=== PATIENT | male | born 1995 | race Two or more races ===

== ENCOUNTER 2017-02-21 20:48 | Emergency (ER) | payer OTHER, MEDICAID ==
[2017-02-21 20:57] VITALS: PULSE 70; RESP 14; TEMP 98.4
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
[2017-02-21 23:02] VITALS: BP 125/67; O2SAT 98
== END 2017-02-21 23:00 | disposition home or self-care (01) ==
DX: S00.83XA Contusion of other part of head, initial encounter (principal); Z87.891 Personal history of nicotine dependence; Y04.8XXA Assault by other bodily force, initial encounter

== ENCOUNTER 2017-05-29 13:38 | Emergency (ER) | payer MEDICAID, OTHER ==
[2017-05-29 14:01] VITALS: BP 127/69; PULSE 71; RESP 18; TEMP 98.1; O2SAT 95
== END 2017-05-29 14:32 | disposition left against medical advice (07) ==
DX: Z53.21 Procedure and treatment not carried out due to patient leaving prior to being seen by health care provider (principal)

== ENCOUNTER 2017-05-29 15:35 | Emergency (ER) | payer MEDICAID ==
[2017-05-29 15:47] VITALS: BP 123/66; PULSE 80; RESP 17; TEMP 98.2; O2SAT 97
== END 2017-05-29 18:19 | disposition left against medical advice (07) ==
DX: Z53.21 Procedure and treatment not carried out due to patient leaving prior to being seen by health care provider (principal)

== ENCOUNTER 2017-05-30 16:04 | Emergency (ER) | payer MEDICAID | END 2017-05-30 16:49 | disposition left against medical advice (07) | DX: Z53.21 Procedure and treatment not carried out due to patient leaving prior to being seen by health care provider (principal) ==

== ENCOUNTER 2017-06-09 17:08 | Emergency (ER) | payer MEDICAID ==
[2017-06-09 17:19] VITALS: BP 140/61
--- NOTE | 2017-06-09 17:57 | EDPHY ---
ED Progress Note Narrative: As I walked into the room to evaluate the patient, the patient walked out of the room with his dog stating "I'm gonna leave". I did not examine the patient. I did not interview the patient.
== END 2017-06-09 18:17 | disposition left against medical advice (07) ==
LOC: EEVIPCON 17:08
DX: Z53.21 Procedure and treatment not carried out due to patient leaving prior to being seen by health care provider (principal)

== ENCOUNTER 2017-08-15 12:20 | Emergency (ER) | payer MEDICAID ==
[2017-08-15 13:08] LABS: PLATELET COUNT 289 10^3/uL (150-400)
--- NOTE | 2017-08-15 13:26 | EDPHY ---
General - History Smoking Status: Former smoker Time Seen by Provider: 08/15/17 13:01 Narrative: CHIEF COMPLAINT: M1 hold HISTORY OF PRESENT ILLNESS: Patient presents by [facility]'s Office on an M1 hold. He denies any complaints of any kind. He says that he was at pre-trial supervision for court date tomorrow when he was placed on an M1 hold. He denies any complaints of suicidal ideation or homicidal ideation. He says that he is concerned that he is not going to make his court date tomorrow, which he has because he did not make a previous court day. He has no chest pain or shortness of breath. No other complaints of any kind. The M1 has been documented that he was exhibiting flight of ideas, tangential behavior, poor decision making and grave disability. Patient denies these complaints. PSYCHIATRIC DIAGNOSES: Denies any formal diagnoses PRIOR PSYCHIATRIC EVALUATIONS: Denies inpatient evaluations M1/DETAINER: [place] [employer] just prior to arrival REVIEW OF SYSTEMS: Ten systems reviewed and are negative unless otherwise noted in the HPI EXAMINATION General Appearance: Alert, no distress Well-developed well-nourished. Head: normocephalic, atraumatic Eyes: Pupils equal and round, no conjunctival pallor or injection ENT, Mouth: Mucous membranes moist Neck: Normal inspection, supple, non-tender Respiratory: Lungs are clear to auscultation. No wheezing rhonchi or crackles Cardiovascular: Regular rate and rhythm. No murmur Neurological: GCS 15. A&O, nonfocal, normal gait Skin: Warm and dry, no rash. No petechiae or purpura. No lacerations Extremities: Nontender, no pedal edema Psychiatric: Extremely flat affect. Denies suicidal ideation. Denies homicidal ideation. Controlled thought. DIFFERENTIAL DIAGNOSES: Including but not limited to schizoaffective, schizophrenia, bipolar, grave disability, MDM: 1:10 p.m. M1 hold due to reported tangential thought, erratic behavior. The patient denies suicidal ideation. He has thus far cooperative. 1:55 p.m. Patient is cleared at this time for evaluation 2:30 p.m. Patient is [facility] by [facility]. 4:00 p.m. Patient has been evaluated I do not have any updated information at this time. 4:36 p.m. Patient has been evaluated, and they recommend placement for possible acute psychosis, first episode. The patient has reportedly had adverse reaction to new such as this in the past, thus I will order Zyprexa. At this point he is cooperative and placement will be found. 5:00 p.m. At this time Dr. Luis will assume care the patient. Please see her note for final disposition. SUPERVISION: Patient was independently examined, but I discussed the case with my primary supervising physician Dr. Luis. (Louisa Bellay) 2300: Patient here on M1 hold. Signed over to Dr. Reyes, Katie eval ( Alton Aly) 1:35 a.m.- Patient has been stable. He has been accepted for further care at [facility] by Dr. Alvarado. I have completed the EMTALA form. (Essence Reyes) Discussion: 9pm: signed over to Dr. Aly at shift change. Dispo pending. (Jenise Luis ) - Objective Vital Signs: Initial Vital Signs Temperature (C) 36.9 C 08/15/17 12:20 Heart Rate 78 08/15/17 12:20 Respiratory Rate 18 08/15/17 12:20 Blood Pressure 123/73 H 08/15/17 12:20 O2 Sat (%) 97 08/15/17 12:20 O2 Delivery Mode Room Air Allergies/Adverse Reactions: No Known Allergies Allergy (Verified 06/09/17 17:14) Home Medications: Medication Instructions Recorded NK [No Known Home Meds] 02/21/17 Laboratory Results: Laboratory Results 08/15/17 13:00 08/15/17 13:00 08/15/17 13:25 Urine Opiates Screen NEGATIVE (NEGATIVE) Urine Barbiturates NEGATIVE (NEGATIVE) Ur Phencyclidine Scrn NEGATIVE (NEGATIVE) Ur Amphetamine Screen NEGATIVE (NEGATIVE) U Benzodiazepines Scrn NEGATIVE (NEGATIVE) Urine Cocaine Screen NEGATIVE (NEGATIVE) U Marijuana (THC) Screen NEGATIVE (NEGATIVE) Medications Given: Discontinued Medications Olanzapine (Zyprexa Zydis) 10 mg PO EDNOW ONE Stop: 08/15/17 16:39 Last Admin: 08/15/17 17:09 Dose: Not Given Olanzapine (Olanzapine) 10 mg PO ONCE ONE Stop: 08/15/17 18:24 Last Admin: 08/15/17 18:33 Dose: Not Given Departure - Departure Disposition: Other Psych, Not [place] Clinical Impression: Acute psychosis Condition: Good Referrals: NONE *PRIMARY CARE P,. [Primary Care Provider] - As per Instructions
[2017-08-15] MEDS ORDERED: OLANZapine DISINTEGR 10 MG TAB PO ONE (16:38)
[2017-08-15] MEDS ORDERED: OLANZapine 5 MG TAB PO ONE (18:23)
[2017-08-16 01:35] VITALS: BP 121/59
== END 2017-08-16 02:16 ==
DX: F23 Brief psychotic disorder (principal); Z87.891 Personal history of nicotine dependence
CPT/HCPCS: 80305; G0480

== ENCOUNTER 2017-08-22 23:19 | Emergency (ER) | payer MEDICAID ==
[2017-08-22 23:32] VITALS: BP 125/82
--- NOTE | 2017-08-22 23:34 | CPEKG ---
Heart Rate: 89 RR Interval: 674 P-R Interval: 172 QRSD Interval: 90 QT Interval: 348 QTC Interval: 424 P [place]: 41 QRS [place]: 61 T Wave [place]: 25 EKG Severity - BORDERLINE ECG - EKG Impression: SINUS RHYTHM EKG Impression: INFERIOR Q WAVES, PROBABLY NORMAL VARIATION Electronically Signed By: Yahir Prince 24-Aug-2017 08:47:52
--- NOTE | 2017-08-23 00:37 | EDPHY ---
H & P Stated Complaint: chest pain Time Seen by Provider: 08/22/17 23:26 HPI/ROS: Chief Complaint: Chest pain HPI: 22-year-old male's presenting of substernal chest pain, left-sided facial numbness, right arm tingling. Patient states this started earlier today. Patient was recently admitted to the inpatient psychiatric unit at [facility] was discharged this afternoon. He actually states he has been having chest discomfort intermediately for the last week. He does not smoke. Does not have any risk factors for coronary artery disease. Patient is very poor historian very vague, only complaining of some mild discomfort. No family history of coronary disease. ROS: 10 point Review of Systems is negative except as noted in the HPI. PMH: Denies Social History: Denies smoking, denies alcohol, denies other drug use Family History: No family history of coronary artery disease or sudden cardiac Physical Exam: Gen: Awake, Alert, No Distress HEENT: Nose: no rhinorrhea Eyes: PERRLA, EOMI Mouth: Moist mucosa Neck: Supple, no JVD Chest: nontender, lungs clear to auscultation Heart: S1, S2 normal, no murmur Abd: Soft, non-tender, no guarding Back: no CVA tenderness, no midline tenderness Ext: no edema, non-tender Skin: no rash Neuro: CN II-XII intact, Sensation grossly intact, Strength 5/5 in bilateral upper and lower extremities - Personal History Current Tetanus Diphtheria and Acellular Pertussis (TDAP): Yes - Medical/Surgical History Hx Asthma: No Hx Chronic Respiratory Disease: No Hx Diabetes: No Hx Cardiac Disease: No Hx Renal Disease: No Hx Cirrhosis: No Hx Alcoholism: No Hx HIV/AIDS: No Hx Splenectomy or Spleen Trauma: No Other PMH: tonsilectomy as child. Pt states no other history. - Social History Smoking Status: Former smoker Constitutional: Initial Vital Signs Heart Rate 94 08/22/17 23:28 Respiratory Rate 20 08/22/17 23:28 Blood Pressure 125/82 H 08/22/17 23:28 O2 Sat (%) 97 08/22/17 23:28 O2 Delivery Mode Nasal Cannula O2 (L/minute) 1 Allergies/Adverse Reactions: No Known Allergies Allergy (Verified 08/22/17 23:27) Home Medications: Medication Instructions Recorded NK [No Known Home Meds] 02/21/17 Medical Decision Making - Diagnostics EKG Interpretation: ECG time 11:25 p.m., sinus rhythm with a rate of 89, normal axis, normal intervals, no acute ST or T-wave changes. Impression: Normal ECG. Imaging Results: Chest x-ray is negative per my interpretation. Imaging: I viewed and interpreted images myself ED Course/Re-evaluation: 22-year-old male with no risk factors for coronary disease presenting with chest pain. Concerned he is having a heart attack. He was released from a mental health inpatient admission chest earlier today. ECG is normal. Chest is negative. Entered the patient's room to given the results of his testing thus far and he has left against medical advice. Departure - Departure Disposition: Home, Routine, Self-Care Clinical Impression: Chest pain Condition: Good Instructions: Chest Pain (ED) Additional Instructions: Follow up with [facility] in 2-3 days for further evaluation. Follow up at [facility] tomorrow for further care. Make sure you get your prescriptions filled and resume your medications later today. Return to the emergency department for worsening chest pain, shortness of breath , fevers, chills, nausea, vomiting, or any other concerns. Referrals: [facility],. [Clinic] - As per Instructions
== END 2017-08-23 00:56 | disposition home or self-care (01) ==
LOC: EDUNIT#
DX: R07.9 Chest pain, unspecified (principal); Z87.891 Personal history of nicotine dependence

== ENCOUNTER 2017-08-23 11:20 | Emergency (ER) | payer MEDICAID ==
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
[2017-08-23] MEDS ORDERED: LORazepam 2 MG/ML INJ IVP ONE (11:28)
[2017-08-23 11:52] LABS: PLATELET COUNT 337 10^3/uL (150-400)
[2017-08-23] MEDS ORDERED: OLANZapine DISINTEGR 10 MG TAB PO ONE (11:55)
[2017-08-23] MEDS ORDERED: OLANZapine DISINTEGR 10 MG TAB ONE (12:17)
[2017-08-23 20:44] VITALS: BP 121/93
== END 2017-08-23 20:43 | disposition home or self-care (01) ==
LOC: EDUNIT#
DX: R45.1 Restlessness and agitation (principal); F19.10 Other psychoactive substance abuse, uncomplicated
CPT/HCPCS: 80305; 96374; G0480; J2060

== ENCOUNTER 2017-08-24 19:46 | Emergency (ER) | payer MEDICAID ==
--- NOTE | 2017-08-24 19:49 | EDPHY ---
H & P - Medical/Surgical History Hx Asthma: No Hx Chronic Respiratory Disease: No Hx Diabetes: No Hx Cardiac Disease: No Hx Renal Disease: No Hx Cirrhosis: No Hx Alcoholism: No Hx HIV/AIDS: No Hx Splenectomy or Spleen Trauma: No Other PMH: tonsilectomy as child. Pt states no other history. - Social History Smoking Status: Former smoker Time Seen by Provider: 08/24/17 19:49 HPI/ROS: CHIEF COMPLAINT: "The voices tell me I have chest pain" HISTORY OF PRESENT ILLNESS: 22-year-old male arrives via ambulance on an M1 hold for psychosis, audio hallucinations telling him he has chest pain. He denies complaints of chest pain but tells me that the voices tell him he has chest pain. Denies dyspnea. Denies abdominal pain. Denies fever chills. Denies cocaine or drug use He denies suicidal or homicidal ideation. REVIEW OF SYSTEMS: A ten point review of systems was performed and is negative with the exception of the items mentioned in the HPI PAST MEDICAL & SURGICAL HISTORY: Prior history of hospitalization for psychiatric issues. SOCIAL HISTORY: Positive for marijuana use PHYSICAL EXAM (Prior to examination, patient consented to physical exam, hands were washed and my usual and customary physical exam procedures followed) 1) GENERAL: Well-developed, well-nourished, alert and oriented. Calm and cooperative. 2) HEAD: Normocephalic, atraumatic 3) HEENT: Pupils equal, round, reactive to light bilaterally. Sclera anicteric. 4) NECK: Full range of motion, no meningeal signs. 5) LUNGS: Clear auscultation bilaterally, no wheezes, no rhonchi, no retractions. 6) HEART: Regular rate and rhythm, no murmur, no heave, no gallop. 7) ABDOMEN: No guarding, no rebound, no focal tenderness, 8) MUSCULOSKELETAL: Moving all extremities, no focal areas of tenderness, no obvious trauma. No peripheral edema or discoloration. 9) BACK: No obvious trauma, no visual or palpable abnormality. 10) SKIN: No rash, no petechiae. 11) Psychiatric: Patient is oriented X 3, there is no agitation. He is watching TV. DIFFERENTIAL DIAGNOSIS: In no particular order including but not limited to psychosis, patria, suicidal ideation, homicidal ideation (Jos eJuan Hu) Constitutional: Initial Vital Signs Temperature (C) 37 C 08/24/17 19:59 Heart Rate 92 08/24/17 19:59 Respiratory Rate 20 08/24/17 19:59 Blood Pressure 120/87 H 08/24/17 19:59 O2 Sat (%) 95 08/24/17 19:59 O2 Delivery Mode Room Air Allergies/Adverse Reactions: No Known Allergies Allergy (Verified 08/24/17 19:59) Home Medications: Medication Instructions Recorded NK [No Known Home Meds] 02/21/17 Medical Decision Making - Diagnostics Imaging Results: Images reviewed myself (Jose Juan Hu) ED Course/Re-evaluation: 7:50 p.m.: Old medical records reviewed. Patient was in the emergency department yesterday evaluated by mental health mail teller and discharged. Today he is on an M1 hold for complaints of psychosis, audio hallucination. Denies suicidal or homicidal ideation. Interviewing his old medical records he has prior complaints of chest pain from the emergency department. At this time although he is, cooperative he is quite insistent that we need to do a " complete cardiac evaluation". He denies family history of premature coronary artery disease, denies history of cocaine use, denies family history of coagulopathic disorder. Informed him that I would obtain laboratory studies in the emergency department 9:50 p.m.: Re-evaluation he is calm and cooperative. I discussed with him his normal troponin, normal D-dimer which I think adequately excludes pulmonary embolus in this patient whom I have a moderate pretest suspicion for pulmonary embolus. In addition he has a negative chest x-ray. Informed him that I think that PR, PE, less than likely this patient at this time. Expressed understanding of this. 10:25 p.m.: Patient has been overall calm and cooperative up until this time. At this time however his behavior is escalating, he is threatening to "have my medical license revoked", patient is yelling that I am providing "substandard cardiac care". 130 am: Mental health mail teller has evaluated the patient , recommended inpatient , will start looking for placement. 2 am: Care turned over to Dr. Essence Reyes. Mental health evaluating pending (Jose Juan Hu) 6:00 a.m.- The patient has been stable throughout my shift. At 6:45 a.m., the patient was accepted to [facility] by Dr. Mackenzie. I have completed the EMTALA form. At 7:00 a.m., I anticipate the case will be signed out to the oncoming provider Dr. Flores. [facility] - Data Points Laboratory Results: Laboratory Results 08/24/17 19:50 08/24/17 19:50 Medications Given: Discontinued Medications Lorazepam (Ativan) 1 mg PO EDNOW ONE Stop: 08/24/17 22:15 Last Admin: 08/24/17 22:32 Dose: 1 mg Olanzapine (Zyprexa Zydis) 5 mg PO EDNOW ONE Stop: 08/24/17 22:15 Last Admin: 08/24/17 22:39 Dose: Not Given Olanzapine (Zyprexa Zydis) 10 mg PO EDNOW ONE Stop: 08/24/17 22:31 Last Admin: 08/24/17 22:32 Dose: 10 mg Departure - Departure Disposition: Other Psych, Not [place] Clinical Impression: Acute psychosis Condition: Fair Referrals: Patient,NotPresent [Unknown] - As per Instructions
[2017-08-24 20:05] LABS: PLATELET COUNT 312 10^3/uL (150-400)
--- NOTE | 2017-08-24 21:01 | CPEKG ---
Heart Rate: 61 RR Interval: 984 P-R Interval: 172 QRSD Interval: 98 QT Interval: 400 QTC Interval: 403 P [place]: 13 QRS [place]: 61 T Wave [place]: 35 EKG Severity - BORDERLINE ECG - EKG Impression: SINUS RHYTHM EKG Impression: BORDERLINE Q WAVES IN INFERIOR LEADS EKG Impression: INFERIOR Q WAVES, PROBABLY NORMAL VARIATION Electronically Signed By: Josue Parnell 24-Aug-2017 23:19:31
[2017-08-24] MEDS ORDERED: OLANZapine DISINTEGR 5 MG TAB PO ONE (22:14)
[2017-08-24] MEDS ORDERED: LORazepam 1 MG TAB PO ONE (22:14)
[2017-08-24] MEDS ORDERED: OLANZapine DISINTEGR 10 MG TAB PO ONE (22:30)
[2017-08-25 07:45] VITALS: BP 105/65
== END 2017-08-25 10:17 ==
LOC: EDUNIT#
DX: F23 Brief psychotic disorder (principal); Z87.891 Personal history of nicotine dependence
CPT/HCPCS: 80305; G0480

== ENCOUNTER 2017-08-28 22:20 | Emergency (ER) | payer MEDICAID ==
[2017-08-28] MEDS ORDERED: NS 1,000 ML IV ONE (22:29)
--- NOTE | 2017-08-28 22:31 | EDPHY ---
H & P Source: Patient, RN/MD, EMS, Old records Exam Limitations: Clinical condition - Medical/Surgical History Hx Asthma: No Hx Chronic Respiratory Disease: No Hx Diabetes: No Hx Cardiac Disease: No Hx Renal Disease: No Hx Cirrhosis: No Hx Alcoholism: No Hx HIV/AIDS: No Hx Splenectomy or Spleen Trauma: No Other PMH: tonsilectomy as child. Pt states no other history. - Social History Smoking Status: Former smoker Time Seen by Provider: 08/28/17 22:30 HPI/ROS: HPI: This is a 22-year-old male who presents with Chief Complaint: Marijuana intoxication, chest pain Location: Chest Quality: Pain Duration: Days Signs and Symptoms: no shortness of breath at rest, no shortness of breath on exertion, no cough, + chest pain, no palpitations, no lower extremity edema, no wheezing, no orthopnea, no paroxysmal nocturnal dyspnea, no fever, no injury/ trauma, no hemoptysis, no carpal pedal spasms Timing: Acute on chronic Severity: Moderate Context: Patient presents via EMS as a bystander saw him next the curb shaking and yelling out that he was having chest pain. Patient admits to smoking marijuana throughout the day today. He reports that he feels extremely anxious , feels like has difficulty getting his thoughts together. He denies any hallucinations, paranoia, shortness of breath, abdominal pain, fever, chills. He denies any alcohol or drug use. He reports that he has no cardiac family history. Denies history of cocaine use. Denies suicidal or homicidal ideation. Patient has been seen in this emergency room 4 times over the last week for the same complaint. He has had 2-chest x-rays on 08/22 and 08/24. He has had multiple EKGs that show no acute ischemic changes/arrhythmias. He had a negative D-dimer on 08/24/2017. EMS reports that for lead shows no acute ischemic changes but it is sinus tachycardia at 122 beats per minute and respiratory rate at 32. Reports that he follows with [facility] and is supposed to take a medication regular but he is unsure of the name. He does report that he has been noncompliant with his medication for"sometime."On 2017 patient was recommended for inpatient therapy and is accepted by [facility] by Dr. Mackenzie. Patient insists that his blood pressure cuff has to remain on the left arm as it is closest to the heart and only way to determine if he is having heart attack. He tells me that his family will not answer his phone calls. He also reports that he is being evicted from his home as he does not have a job. Modifying Factors: None Comment: ROS: see HPI Constitutional: No fever, no chills, no weight loss Eyes: No blurred vision Respiratory: No shortness of breath, no cough Cardiovascular: + chest pain, no palpitations, no lower extremity edema Gastrointestinal: No nausea, no vomiting, no diarrhea Genitourinary: No dysuria Extremities: No myalgias Neurologic: No weakness, no numbness Skin: No rashes Hematologic: No bruising, no bleeding MEDICAL/SURGICAL/SOCIAL HISTORY: Medical history: Generally healthy. Does not take any regular medications. Surgical history: Tonsillectomy Social history: Unemployed. Former smoker. CONSTITUTIONAL: Extremely anxious young adult male, awake and alert, no obvious distress HEENT: Atraumatic and normocephalic, PERRL, EOMI. Nares patent; no rhinorrhea; no nasal mucosal edema. Tympanic membranes clear. Oropharynx clear, no exudate and moist pink mucosa. Airway patent. No lymphadenopathy. No meningismus. Cardiovascular: Normal S1/S2, tachycardia, regular rhythm, without murmur rub or gallop. PULMONARY/CHEST: Symmetrical and nontender. Clear to auscultation bilaterally. Good air movement. No accessory muscle usage. ABDOMEN: Soft, nondistended, nontender, no rebound, no guarding, no peritoneal signs, no masses or organomegaly. No CVAT. EXTREMITIES: 2/2 pulses, strength 5/5, no deformities, no clubbing, no cyanosis or edema. NEUROLOGICAL: no focal neuro deficits. GCS 15. SKIN: Warm and dry, no erythema. no rash. Good capillary refill. PSYCH: Poor eye contact, no flight of ideas, fairly organized thought process, poor insight and judgment, no auditory hallucinations, no visual hallucinations , no suicidal ideation with a plan, no homicidal ideation, no paranoia (Elizabeth,Terra) Constitutional: Initial Vital Signs Temperature (C) 37.1 C 08/28/17 22:27 Heart Rate 123 H 08/28/17 22:27 Respiratory Rate 18 08/28/17 22:27 Blood Pressure 162/65 H 08/28/17 22:27 O2 Sat (%) 100 08/28/17 22:27 O2 Delivery Mode Room Air Allergies/Adverse Reactions: No Known Allergies Allergy (Verified 08/28/17 22:31) Home Medications: Medication Instructions Recorded NK [No Known Home Meds] 02/21/17 Medical Decision Making - Diagnostics EKG Interpretation: 12 lead EKG: Indication: Chest pain Rhythm: Sinus tachycardia, rate 122 beats per minute [place]: Normal Intervals: Normal QRS: Normal ST segments: Normal INTERPRETATION: Normal EKG The 12 lead EKG was interpreted by myself and with attending. (Susan Johnson) ED Course/Re-evaluation: Vital signs reviewed upon arrival and show hyperventilation syndrome. Patient is clearly anxious and under the influence of marijuana. Initial EKG shows sinus tachycardia with a rate of 122 beats minute but no signs of acute ischemia/arrhythmias. Labs and UDS ordered. Patient given 1 L normal saline and 2 mg IV Ativan upon arrival. Do not feel the benefit of adding a D-dimer as it was negative several days ago and no benefit to repeat chest x-ray due to 2-x-rays in the last few days. 2245: Patient refusing IV Ativan at this time. 2305: Labs reviewed. No signs of anemia/platelet dysfunction/MOISES/electrolyte imbalance/ACS. Mild leukocytosis of 12 K noted. 2325: Reassessed patient who is tearful and talking about his mother dying from a heart attack and benzodiazepines. He reports that he lives at several different addresses and has disorganized thought process he truly believes that he has a cardiac condition he is going to . He is extremely paranoid and is having psychosis. Patient at this time is gravely disabled and placed on M1 hold. IV Ativan 2 mg given. 0005: End of Shift. Signed over to Dr. Reyes pending urine sample, medical clearance and final disposition. Patient would benefit from medication stabilization and inpatient psychiatric hospitalization. This patient was seen under the supervision of my secondary supervising physician. I evaluated care for this patient independently. Discussed this patient with Dr. Reyes. (Susan Johnson) PHYSICIAN DOCUMENTATION: The patient was evaluated and managed by the Physician Job Printer Apprentice. My co- signature indicates that I have reviewed this chart and I agree with the findings and plan of care as documented. I am the secondary supervising physician. I assumed care of this patient at 1:00 a.m.. He was stable and sleeping for most of his time on my shift. At 7:00 a.m., the case was turned over to the oncoming provider Dr. Truong. Patient is currently undergoing his mental health evaluation with EPS. (Essence Reyes) 3:35 p.m. patient was accepted at [address] [place] [address] Casey. I have completed transfer paperwork. (Carlos Flores) Differential Diagnosis: Chest pain including but not limited to myocardial ischemia, pulmonary embolus, chest wall pain, pleural inflammation and pulmonary infectious causes. (Susan Johnson) Other Provider: Care assumed at 7:00 a.m. Plan for psychiatric evaluation for acute psychosis. Recent ED visit within the last week with hospitalization at [facility] for acute psychosis. Afebrile on arrival, lab workup negative except for benzodiazepine positive on tox screen. Chest pain, likely not acute emergent medical condition. On a mental health hold. Per mental health insurance verification clerk plan is to admit to [address] [place] [address], followed by attempt to get him a more prolonged hospitalization at [facility]. Signed out to Sandra at 1500 with psychiatric placement pending. (Clovis Truong) - Data Points Laboratory Results: Laboratory Results 08/28/17 22:30 08/28/17 22:30 08/29/17 05:05 Urine Opiates Screen NEGATIVE (NEGATIVE) Urine Barbiturates NEGATIVE (NEGATIVE) Ur Phencyclidine Scrn NEGATIVE (NEGATIVE) Ur Amphetamine Screen NEGATIVE (NEGATIVE) U Benzodiazepines Scrn NON-NEGATIVE H (NEGATIVE) Urine Cocaine Screen NEGATIVE (NEGATIVE) U Marijuana (THC) Screen NEGATIVE (NEGATIVE) Medications Given: Discontinued Medications Sodium Chloride (Ns) 1,000 mls @ 0 mls/hr IV EDNOW ONE; Wide Open PRN Reason: Protocol Stop: 08/28/17 22:30 Last Admin: 08/28/17 22:37 Dose: 1,000 mls Lorazepam (Ativan Injection) 2 mg IVP EDNOW ONE Stop: 08/28/17 22:29 Last Admin: 08/28/17 22:47 Dose: Not Given Lorazepam (Ativan Injection) 2 mg IVP EDNOW ONE Stop: 08/28/17 23:53 Last Admin: 08/28/17 23:54 Dose: 2 mg Olanzapine (Zyprexa Zydis) 5 mg PO EDNOW ONE Stop: 08/29/17 00:05 Last Admin: 08/29/17 04:53 Dose: Not Given Point of Care Test Results: Chemistry 08/28/17 22:39 POC Troponin I 0.00 ng/mL ng/mL (0.00-0.08) Departure - Departure Disposition: [facility] IP Clinical Impression: Non-cardiac chest pain, Marijuana use, continuous, Schizophrenia Psychosis Qualifiers: Psychosis type: delusional disorder Qualified Code(s): F22 - Delusional disorders Condition: Fair Instructions: Chest Pain (ED) Referrals: [facility],. [Clinic] - As per Instructions [facility],. [Clinic] - As per Instructions
--- NOTE | 2017-08-28 22:33 | CPEKG ---
Heart Rate: 122 RR Interval: 492 P-R Interval: 145 QRSD Interval: 104 QT Interval: 282 QTC Interval: 402 P [place]: 75 QRS [place]: 72 T Wave [place]: -16 EKG Severity - ABNORMAL ECG - EKG Impression: SINUS TACHYCARDIA EKG Impression: BORDERLINE Q WAVE IN ANTEROLATERAL LEADS EKG Impression: INFERIOR Q WAVES, PROBABLY NORMAL VARIATION EKG Impression: BORDERLINE T WAVE ABNORMALITIES Electronically Signed By: Clovis Truong 29-Aug-2017 07:40:00
[2017-08-28] MEDS: LORazepam 2 MG/ML INJ IVP ONE ×2 (22:37→22:47)
[2017-08-28 22:47] LABS: PLATELET COUNT 367 10^3/uL (150-400)
[2017-08-28] MEDS ORDERED: LORazepam 2 MG/ML INJ IVP ONE (23:52)
[2017-08-29] MEDS ORDERED: OLANZapine DISINTEGR 5 MG TAB PO ONE (00:04)
--- NOTE | 2017-08-29 14:42 | ASMTTLCEVL ---
TLC Evaluation - Basic Information Evaluation Start Date and 08/29/2017 01:07 AM Time Hospital Status Answers: M1 Hold 72-hr M1 Hold Start Date 08/29/2017 11:25 PM and Time Patient statement Notes: Pt self presented last night with complaints of chest pain, a heart attack and with fears that he was dying. Pt. had told ED staff he had been smoking a small amount of THC yesterday and thinks he is dying. Pt. had reported his chest pain started before smoking marijuana yesterday. Pt. had told [facility] worker that he has multiple puncture wounds in his forehead and on his legs. Pt. showed the [facility] worker but the skin appeared to be intact with no injury. Pt. had also told [facility] worker he has sensors implanted in his head and his forehead Pt. was placed on a M1 hold by [facility] due to his bizarre complaints and inappropriate thought process. All medical tests for cardiac problems were negative. Pt. had stated he was given a Rx for Zyprexa but he has not taken any meds since leaving the hospital on Sunday, 08/27 since he does not feel he needs any psychiatric medications. Narrative Notes: Pt. is a 22 year old, single, male who was brought to the [facility] ED by EMS after a bystander saw him next to a curb shaking and yelling out that he wa having chest pain. Pt. had admitted to smoking marijuana throughout the day today. He reports that he feels extremely anxious, feels like he has difficulty getting his thoughts together. Pt. had denied any hallucinations, paranoia, shortness of breath, abdominal pain, fever or chills. Pt. denied to the [facility] any alcohol or drug use. Pt. also had denied any HI or SI. Pt. has been seen in the [facility] ED 4 times in the last week for the same complaints. He had 2 chest x-rays on 08/22 and on 08/24. He had multiple EKG's that showed no acute ischemic changes/arhythmias. Per [facility] report pt. has been in the [facility] ED with the same presentation several times on 08/23, 08/24 and 08/16 with similar complaints of racing heart and thinking he was having a heart attack. Pt. had denied any prior or any current mental health issues or treatment even denying any inpt. admissions. During [facility] evaluation pt. had reported having his real estate attorney on the pone to record the assessment. Pt. was noted to be perseverating on medical problems. It was noted pt. was discharged from [facility] unit on 08/27/17. Per MH assessment on 08/15/17 at the [facility] Debora Thomas, reporting it was believed pt is having his first psychotic break. Pt. has no known hx of prior MH treatment including no prior hospitalizations or arrests since April of 2017. Pt. has reported to have gone through 14 thousand dollars since April of 2017 likely due to his psychiatric state. Per M1 hold pt is disorganized with flat affect and confused without ability to provide an accurate time line or identify information. Diagnosis History Notes: Pt. has no known history of legal or mental health intervention until April of 2017. Pt. is not a reliable historian and was unable to provide a time line of past MH intervention or treatment. Prior suicide attempts Notes: There is no prior hx of past suicide attempts known. Pt. is not a reliable historian. Prior hospitalizations Notes: Per [facility] gps navigation installer pt was hospitalized at [facility] form 08/15-08/22 and at [facility] form 08/25-08/27. Treatment Responses Notes: Pt. apparently did not f/u with any treatment recommendations including no f/u with medications. History of violence Notes: Pt. has no known history of violence towards others or being a victim of violence. Medications (name, dosage, route, freq uency) Notes: When pt. was discharged from [facility] on 08/27 it was reported he was given a Rx of Zyprexa. Pt. had told [facility] worker he does not feel a need for taking any medications for mental health problems. Pt. had told [facility] gps navigation installer part of the reason he is against taking medications is he believes his mother's heart attack was due to her taking prescribed medications Allergies/Reaction Notes: No report allergies. Sleep Notes: Pt. reports his sleeping is good and concentration is OK. Appetite Notes: Pt. was unable to reliably report on appetite. Medical/Surgical history Notes: No known medical problems. Pt. has made numerous visits to the ED with beliefs he was having a heart attack. Substance use history (frequency, intensity, his tory, duration) Notes: Unable to assess pt's substance abuse hx. Pt. is not a reliable informant. There appears to be strong suspicion pt. has some hx of substance use. Pt. did admit when presenting to the ED he has a hx of marijuana use. Family composition Notes: Pt. had reported his mother in 2009 and he raised himself from that point on. It was reported that his father is also Pt. had one known brother who he apparently has not communicated with since the mother's in 2009. Need for family Answers: No participation in patient's care Family psychiatric/substance abuse history Notes: Pt. had denied any family hx of mental health issues including no reported hx of substance abuse problems, SI or suicide attempts. Per prior reports it was noted pt's mother became addicted to narcotics after she had a car accident. Pt's mother apparently when pt. was a freshman in high school of a drug overdose. Developmental history Notes: Pt's mother when he was a freshman in high school. Pt. was unable to reliably report on developmental hx. Abuse concerns Answers: None Marital status/children Notes: Pt. reports to be single, never with no children. Living situation Notes: Pt. reported he may loose his housing since he has no money to pay his rent. Sexual history/orientation Notes: Pt. identifies as a heterosexual. Peer support/family strengths Notes: Pt. does not appear to have any family support and any peer support is unknown. Education level/history Notes: Pt claims he graduated from high school and completed college except for the last semester towards a BA in Finance. Work history Notes: Pt. is currently unemployed. He was unable to report a reliable history of work history. Notes: Pt. has no known hx. Legal Notes: Pt. has a hx of legal problems/arrests for trespassing and indecent exposure. Pt. is not currently on probation. He does however have a court date pending in August for failure to appear in court for prior arrests. Per evaluation on 08/15/17 in April pt was arrested at the [facility] after presenting documentation with false identify demanding a license. [facility] staff reported pt since he was not making sense and was charged with obstruction, trespassing and resisting arrest that ultimately resulted in pt. being tased and his service dog being confiscated. Pt was unable to explain what was going on or shy he had a service dog. In May [facility] gps navigation installer reported pt. was arrested at a yoga studio after masturbating in public per yoga studio staff and was making nonsensical statements and appeared to be confused Pt. had been charged with the yoga incident for indecent exposure. Per [facility] report pt. has spent Restorationism/Spiritual Notes: Pt. did not report any pentecostal or spiritual beliefs that would impact his treatment. Leisure Notes: Pt. was unable to reliably report on leisure interests. Collateral Notes: Collateral inform. was obtained from [facility] report and previous MH evaluation he had in [facility]. [facility] Evaluation - Mental Status Exam Appearance: Answers: Unkempt Eye Contact: Answers: Avoiding Mood: Answers: Irritable Affect: Answers: Anxious Apprehensive Distracted Fearful Guarded Indifferent Suspicious Behavior: Answers: Erratic Fearful Guarded Resistive to Care Speech: Answers: Perseverating Thought Process: Answers: Disorganized Distracted Paranoid Insight: Answers: Poor Judgement: Answers: Poor Manic Signs/Symptoms Answers: Distractibility Hypersexuality Impulsivity Spending Sprees Depression Answers: Difficulty Concentrating Signs/Symptoms: Psychomotor Agitation Anxiety Signs/Symptoms Answers: Generalized Anxiety Delusions: Answers: Being Controlled Paranoid Ideation Current Stage of Change Answers: Relapse Pt reported to have Answers: No suicidal/self-injuring ideation/behavior? Pt reported to be making Answers: No suicidal/self-injuring threats? Pt reported to have Answers: No aggression/assault ideation/behavior? Pt reported to be making Answers: No aggression/assault threats? Pt exhibits inability to Answers: Yes care for self/grave disability? Patient has a specific Answers: No plan? History of Answers: No suicidal/self-injuring ideation, behavior, or threats? History of Answers: No aggressive/assaultive ideation, behavior, or threats? History of serious Answers: No physical harm to self/others while in treatment setting? [facility] Evaluation - Suicide/Homicide Risk Suicide Risk Factors: Answers: Impulsivity Inadequate Social Support Lack of Social Support Lack/Loss of Employment Legal Difficulties Psychotic Disorder Unstable Living Situation Homicide/violence risk Answers: None factors: Current Suicidal Answers: No Ideation? Current Suicidal Ideation Answers: No in the Past 48 Hours? Current Suicidal Ideation Answers: No in the Past Month? Current Suicidal Answers: No Ideation, Worst Ever? Suicide Internal Answers: Other Notes: Pt. denies any SI Protective Factors: Suicide External Answers: Other Notes: Pt unable to report any Protective Factors: barriers but denying an y SI Ranking of patient's Answers: Low suicidal risk: Ranking of patient's Answers: Low homicidal risk: TLC Evaluation - Wrap-up AXIS I Diagnosis (include DSM-V and ICD-10 codes), must also be entered in appssavvy, which is the source of truth. 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
--- NOTE | 2017-08-29 14:45 | ASMTTCLDSP ---
TLC Discharge Disposition Disposition: Answers: Admit Disposition Notes: Notes: In consultation with [facility] ED physician, Clovis Truong MD and on-call psychiatrist, Isreal Casey MD, both concurred that pt appears to meet 27-65 criteria requiring psychiatric hospitalization as pt appears to be gravely disabled due to a mental illness condition For inpatient admission, the following Dr. Isreal Casey psychiatrist agreed to accept patient for admission to [facility]): Type of Hold: Answers: M1/72-hour Hold Hold initiated by: Answers: ED Physician Date Signed: 08/29/2017 02:44 PM Electronically Signed By:Irasema Chacko
[2017-08-29 15:43] VITALS: BP 116/51
== END 2017-08-29 17:06 ==
LOC: EDUNIT#
DX: R07.89 Other chest pain (principal); F22 Delusional disorders
CPT/HCPCS: 80305; 84484-PO; 96374; G0480; J2060

== ENCOUNTER 2017-08-29 17:50 | Inpatient (IN) | payer MEDICAID, OTHER ==
[2017-08-29] MEDS ORDERED: MAGNESIUM HYDROXIDE 30 ML UDCUP PO PRN (18:42)
[2017-08-29] MEDS ORDERED: MAG HYDROX/AL HYDROX/SIMETH 30 ML UDCUP PO PRN (18:42)
[2017-08-29] MEDS ORDERED: LORazepam 0.5 MG TAB PO PRN (18:42)
[2017-08-29] MEDS ORDERED: NICOTINE POLACRILEX 2 MG GUM B PRN (18:42)
[2017-08-29] MEDS ORDERED: ACETAMINOPHEN 325 MG TAB PO PRN (18:42)
[2017-08-29] MEDS ORDERED: OLANZapine DISINTEGR 10 MG TAB PO PRN (18:42)
[2017-08-29] MEDS: OLANZapine DISINTEGR 5 MG TAB PO SCH (22:04)
[2017-08-30] MEDS: OLANZapine DISINTEGR 5 MG TAB PO SCH (08:58)
--- NOTE | 2017-08-30 11:58 | ASMTBHMTP ---
Master Treatment Plan Master Treatment Plan Answers: Mood Instability with for: Psychosis Date: 08/30/2017 Diagnosis on Admission: Unspecified Schizophrenia Spectrum and other Psychotic Disorder 298.9 (F29) Expected length of stay: 3-5 days Reason for admission: Notes: Pt is a 22 yoa male who was brought to the [facility] ED by EMS after a bystander saw him next to a curb shaking and yelling out that he was having chest pain. Pt. admitted smoking Marijuana through out the day (today). He reports he feels extremely anxious, feels like he has difficulty getting his thoughts together Client has been in the [facility] ED with the same presentation several times on 08/23, 08/24 and 08/16 with similar complaints. No history of mental health treatment team, Patient's stated presenting problems: Notes: "[I] called 911 because I was having a heart attack- chest pains, this will be the 5 time I called for EMS services in the last month; my mother from a heart attack..." Patient's goals for treatment: Notes: getting out of here Patient's strengths: Notes: none really Identify supports outside of hospital: Notes: Family & Friends Discharge criteria: Notes: Patient will demonstrate more stable mood by discharge Initial disposition plan/considerations: Notes: "no idea...I don't know yet if I want to stay in [place], [place]." Master Treatment Plan Required Signatures Psychiatrist signature: Answers: Psychiatrist: RN on-shift signature: Answers: RN: Patient signature: Answers: Patient: Date Signed: 08/30/2017 11:57 AM Electronically Signed By:Bridger Coleman
--- NOTE | 2017-08-30 13:38 | BAPA ---
[f rep st] ADMISSION PSYCHIATRIC ASSESSMENT DATE OF SERVICE: 08/30/2017 CHIEF COMPLAINT: "I am here because I am on an M1 hold. Hold was put on my name because I was having a heart attack, and they didn't believe me." HISTORY OF PRESENT ILLNESS: The patient was admitted involuntarily and is on an M1 hold due to being gravely disabled and is hospitalized for safety crisis stabilization and medication evaluation. The patient describes circumstances that led to current hospitalization as he was sitting down playing PlayStation and all of a sudden his chest started hurting, and he called the ambulance to take him to the ER. The patient reports within the last 3-4 weeks, he has gone to the ER approximately 4-5 times for chest pain. The patient reports each time he is released and that the ER staff tells him that they cannot find any physical reasons for his chest pain. The patient reports that he also has palpitations, states that he feels like his fingers go numb, he has numb lips during these episodes when he has chest pain. The patient reports he has had no previous history of having chest pains prior to 3-4 weeks ago when he started having these physical complaints. The patient reports that about 4 weeks ago, he did start having more stress including financial stressors. The patient reports he also sometimes worries about how he is going to get everything done, including school work as he is a student at the [employer] and also working. The patient reports current mental health illness as none. This PSYCHOLOGY ASSOCIATE asked patient if he thinks it is possible that he really is not having a heart attack, and perhaps he is just having an anxiety attack or other factors unrelated to a heart attack that could be leading to this chest pain. The patient becomes defensive and states that he thinks that he is definitely having a heart attack when this happens, and then the patient continues to be defensive and reports that he has the right to go to the ER anytime he wants to for any bodily complications in regard to his life. The patient denies that it is possible that his psychiatric illness could be related to his physical complaints, notably chest pain. The patient states current alcohol and/or substance abuse prior to admission to the hospital as uses marijuana daily. Patient's use of MJ on a daily basis may be contributing to anxiety as MJ has been shown to cause increased anxiety. Although patient denies any psychiatric illness that could be leading to his physical complaints, the patient does report excessive anxiety, worrying most days of the week. The patient reports he does find it difficult to control his worry, feels restless and keyed up most days, is easily fatigued, finds it difficult to concentrate sometimes. Does report having muscle tension and at times sleep disturbance. The patient's ongoing physical complaints are likely due to somatic symptom disorder. The patient is reporting one or more somatic symptoms that are distressing and disrupting his daily life. The patient excessively thinks about chest pain and is constantly worried about having a heart attack, has disproportionate and persistent thoughts about the seriousness of his symptoms. The patient persistently has a high level of anxiety about his health or symptoms, and patient spends an excessive time and a great deal of energy devoted to his symptoms and health concerns, notably, going to the ER multiple times for chest pain and being released with no physical findings and given the recommendation to seek psychiatric help. The patient's somatic symptom disorder is related to pain as his somatic symptoms predominantly involve chest pain. The patient's somatic symptom disorder meets the criteria for severe. The patient describes abuse history as none. The patient denies other psychiatric symptoms including symptoms of depression, patria, ADHD, OCD, PTSD, psychosis, and any other symptoms of a psychiatric disorder. The patient describes current psychiatric symptoms are impacting managing day-to -day life described as attending to household responsibilities without difficulty. Reports he recently got a job and is also a full-time student at . The patient reports he socializes with friends all the time. States he gets along well with his family. Reports he currently is carrying a 2.3 GPA along with working and taking care of himself completely independent. The patient reports he has several hobbies he enjoys, including singing, working out , socializing with friends, playing video games online, and socializing on online platforms. The patient reports that he has very satisfied with his life. The patient denies current suicidal ideation. Denies current homicidal ideation, and denies current self-injurious ideation. The patient reports protective factors or reasons to live as his desire to help others. 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 The patient reports he has a large support network of friends and family. The patient reports he does not currently see a provider for medication management nor does he see a therapist on an outpatient basis. PAST PSYCHIATRIC HISTORY: The patient describes the following psychiatric history: The patient denies any past psychiatric diagnoses. The patient reports he has been on Zyprexa 5 mg p.o. daily; however, reports that he does not feel this medication is indicated as he continues to deny that he has any psychiatric illness. The patient reports no history of outpatient psychiatric care. The patient reports he was recently hospitalized at [facility] approximately 1 week ago. The patient denies any history of withdrawal from drugs or alcohol. The patient denies suicidal ideation and denies history of suicide attempts. The patient denies history of self-injurious behavior. ALLERGIES: No known drug allergies. CURRENT MEDICATIONS: None. PAST MEDICAL HISTORY: The patient describes the following: Neurological history none. No history of major illnesses or major hospitalizations. SOCIAL HISTORY: The patient describes the following social history: The patient reports he was born in [place], [place], and his parents were at the time of his . The patient reports that his mother had from a heart attack, and he was raised the majority of his life in [place] by his mother and grandmother prior to this. The patient reports he currently lives in [place], [place]. The patient describes meeting all developmental milestones. Reports no learning delays or difficulties. Describes his sexual orientation as heterosexual. States he is currently not in a relationship, has never been , has no children. 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 The patient reports no history of duty. No church or spiritual practice, and reports he faces a current legal charge as he has court on September 10 for a ticket for a traffic violation. SUBSTANCE USE HISTORY: Patient reports he does not drink alcohol. He does not use nicotine in any form. He does not use caffeine in any form. Reports he smokes marijuana daily and denies all other illicit substance use. When asked if the patient has ever use hallucinogens such as mushrooms or LSD, the patient is hesitant to answer and then answers the question "no." FAMILY PSYCHIATRIC HISTORY: The patient describes the following family psychiatric history: Reports no family psychiatric history, including family history of mental illness, family history of suicide or suicide attempts, and family history of substance use. ADMISSION LABS AND STUDIES: Lipid panel on 08/29/2017: Non-HDL cholesterol was low at 81, LDL/HDL ratio low at 0.99. CBC from 08/28/2017: Lymphocyte percentage was elevated at 47.6%, white blood cells elevated at 12.97, absolute lymphocytes elevated at 6.17, absolute monocytes elevated at 1.31. D-dimer on 08/24/2017: Within normal limits. Chemistry from 08/28/2017: Potassium low at 3.2, carbon dioxide low at 20, glucose elevated at 113 Toxicology within normal limits except for benzodiazepines non negative. Interesting, marijuana shows to be negative; however, patient reports smoking marijuana on a daily basis. MENTAL STATUS EXAM: The patient is a well-nourished, well-developed male looking chronological stated age. Attire is appropriate. Dress is casual, neat and clean. Grooming status is appropriate. Ambulation is independent. Gait is normal and coordinated. Posture is normal and relaxed. Eye contact is appropriate and adequate. Motor activity is appropriate with purposeful, organized, coordinated movements with no involuntary movements noted. Attitude is cooperative. However, patient becomes defensive in regard to several interview questions. The patient appears attentive and relates fairly well to this interviewer. Language production is spontaneous. Rate, rhythm and volume are normal. The patient reports mood as "good" with adequately arranged and congruent affect. The patient's thought process is linear and logical, with no loose associations, tangential thought, thought blocking, concrete thinking, or any other signs of formal thought disorder. The patient does not report suicidal, homicidal thoughts, ideas, or plans. The patient denies auditory visual hallucinations. The patient denies delusions. The patient does not appear to be attending to internal stimuli. The patient is oriented to person, place, time, and situation. The patient's attention and concentration are adequate. The patient's insight and judgment are impaired. A cognitive assessment is completed. Patient attention and recall without difficulty. Patient is able to repeat back for 5 and then 7 numbers without any difficulty. With regard to abstractions, the patient is able to appropriately answer the question of how an airplane and a bird are similar, answering "able to fly." Patient unable to answer abstractly to what the statement rolling stones gather no taylor means, he states it is because the stones are moving; therefore, do not gather taylor. It is possible patient is not familiar with this old proverb-- therefore this is non-contributory to MSE. Memory without difficulty. The patient is able to repeat back 3 items (Pin, Car, Duck) after 5 minutes. Judgment: Patient answers a simple question regarding judgment as to what would he do if he was in a restaurant and heard a fire alarm go off. The patient reports that he would look to see if there was a fire and then evacuate the building accordingly. The patient is oriented x4. The patient is able to perform calculations without difficulty and is able to, starting from 100, subtract by 7's. The patient's fund of knowledge is appropriate for his level of education. The patient reports he has been sleeping fine with 8-10 hours of sleep per night. The patient is currently not on any psychotropic medications, and reports his appetite is normal, eating all meals. DIAGNOSES: 1. Generalized anxiety disorder. 2. Cannabis use disorder, moderate, in a controlled environment. 3. Somatic symptom disorder with predominant pain, severe. FORMULATION: The patient is a 22-year-old male single, currently unemployed, is a full-time student at , living in [place], who presents to the hospital involuntary due to being potentially gravely disabled. The patient requires continued inpatient care for further observation while on the M1 hold. The patient presents with problems of somatic complaints, notably, chest pain. This is causing significant distress in his life and to resources in the area, including multiple trips to the ER for chest pain that is worked up, and patient is always found to be completely well with no physical issues and likely resultant of a somatic symptom disorder and the patient's underlying general anxiety disorder. The patient's life has been affected by these problems, including spending a great deal of time and energy devoted to his physical somatic complaints. The onset of symptoms was preceded by the patient having increased financial stressors, school stressors, and work stressors approximately around the same time that he started having chest pain. Based on the patient's history and current presentation, his diagnoses are generalized anxiety disorder; somatic symptom disorder with predominant pain, severe; and cannabis use disorder, moderate in a controlled environment. The patient is a moderate safety risk and will need to continue to be observed during his 72- hour hold. Protective factors while hospitalized include ongoing safety checks , active involvement in treatment, and support from our treatment team. The patient could benefit from inpatient hospitalization for continued observation for safety. PLAN: (1) Psychotropic medications. Review and recommend psychotropic medications for anxiety. The patient emphatically denies that he has any anxiety symptoms; therefore, states he does not need any psychotropic medications and refuses psychotropic medications at this time. (2) Labs. No other labs will be ordered at this time. (3) Therapy: milieu and group (4) Further investigation including gathering information from patients relatives and review of past case records (5) Continued evaluation and monitoring will be ongoing during the course of patients inpatient hospitalization to inform treatment, to determine if adjustments in medication regimen may benefit patients symptoms, and for discharge planning (6) Safety plan and follow-up outpatient appointments to be established prior to discharge (7) Confer with inpatient treatment team regarding initial treatment plan (8) Review informed consent and recommendations for psychotropic medication treatment listed below now, during the course of hospitalization, and during discharge interview ESTIMATED LENGTH OF STAY: 1-3 days PSYCHOTROPIC MEDICATION TREATMENT INFORMED CONSENT and RECOMMENDATIONS: Review nature of condition, diagnosis, and prognosis. Review nature and purpose of psychotropic medication treatment. Review type of psychotropic medications being ordered. Review risk and benefits of psychotropic medication treatment. Review probable length of time will need to take medications. Review risk and benefits of not undergoing psychotropic medication treatment. Review alternative treatments to psychotropic medications. Review psychotropic medications contraindications, drug-drug interactions, side effects, and importance of reporting any side effects to a psychiatric provider or nurse during inpatient hospitalization, and upon discharge to patients psychiatric outpatient provider, primary care provider, or other health home health care physician. Review importance of asking a nurse, psychiatric provider, or primary care provider any questions or problems concerning the psychotropic medications. Verify patient understands the information that has been provided, and understands, accepts, and agrees to psychotropic medications. Review patients safety plan and importance of patient to communicate to staff while hospitalized if patient is ever a danger to self/others, or unable to care for self, and upon discharge, the importance for patient to contact [facility] or [facility], or go to the nearest emergency room, if patient is ever a danger to self/others, or unable to care for self. Recommend that upon discharge patient establish medication management treatment with a psychiatric provider, establishes routine therapy appointments, and follow-up with primary care provider. Verify patient understands and agrees to these recommendations. ESTIMATED LENGTH OF STAY: 1-3 days. /[id number]/MODL MTDD
--- NOTE | 2017-08-30 18:31 | BCON ---
[f rep st] BEHAVIORAL HEALTH CONSULTATION INTERNAL MEDICINE CONSULTATION DATE OF CONSULTATION: 08/30/2017 REFERRING PHYSICIAN: Isreal Casey MD REASON FOR REFERRAL: Medical clearance for inpatient behavioral health stay. HISTORY OF PRESENT ILLNESS: This patient has had multiple emergency department visits since 08/22/2017, complaining of chest pain and concerned about having a heart attack. 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 He has had evaluation in his emergency department visits, including chest x-ray, EKG, troponin which was negative, D-dimer which was negative, and it has been concluded that he has noncardiac chest pain. He was observed to be psychotic and intoxicated on marijuana during his last several visits and so was ultimately transferred to the Inpatient behavioral health unit for psychiatric care. He continues to complain of chest pain. Otherwise, he is without acute complaints. PAST MEDICAL HISTORY: He denies any history of medical illnesses. PAST SURGICAL HISTORY: He has not any surgeries. MEDICATIONS: I gleaned from reviewing the medical record that he was prescribed olanzapine in the past, but he has been noncompliant. 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 He is a nonsmoker. He is a regular marijuana user. FAMILY HISTORY: His mother of a heart attack. REVIEW OF SYSTEMS: Other than chest pain, a 10-point review of systems was conducted and was negative. PHYSICAL EXAM: VITAL SIGNS: Blood pressure yesterday evening was 118/60. Heart rate was 67. Respiratory rate was 14. Oxygen saturation was 97% on room air. Temperature was 36.4 degrees centigrade. His weight is 97.5 kg for a body mass index of 31.7. GENERAL: This is a well-nourished, well-developed, obese man, who appears his chronologic age with long hair and a long but trimmed mendoza, cooperative and in no acute distress. HEENT: Extraocular movements are intact. Pupils are equal, round, and reactive to light. Mucous membranes are moist. Dentition is in good condition. NECK: Supple. HEART: There are a regular rate and rhythm. There are no murmurs, rubs, or gallops. He is mildly bradycardic on exam today. LUNGS: Clear to auscultation bilaterally. ABDOMEN: Benign. EXTREMITIES: There is no cyanosis, clubbing, or edema. NEUROLOGIC: He is alert. Orientation is not checked. Cranial nerves 2 through 12 are grossly intact. There is no focal weakness. Sensation is intact to light touch, and gait is within normal limits. LABORATORY STUDIES: Drawn yesterday and the day before: CBC showed an elevated white blood cell count of 12.97. There was no left shift. There were predominantly lymphocytes and monocytes. Otherwise, CBC was within normal limits. Serum chemistry revealed a slightly low potassium at 3.2. He had a slightly low carbon dioxide at 20. Glucose was elevated at 113, but this was likely not fasting, drawn at 2230. Hemoglobin A1c was 5.4. Lipid panel revealed a cholesterol in the normal range of 142, a low LDL at 60, an HDL at 61. Toxicology screen several days ago was positive for marijuana and yesterday was positive for benzodiazepines in the urine toxicology screen. Serum toxicology screen was negative for ethyl alcohol. ASSESSMENT/RECOMMENDATIONS: 1. Mental health issues: Pending further evaluation and management per Psychiatry and the mental health team. 2. Noncardiac chest pain: I see that Mylanta has been ordered, and it is worth a trial should he have recurrent chest pain, as reflux and esophageal spasm can certainly mimic the symptoms of cardiac chest pain. 3. Obesity: Consider avoiding medications which might promote further weight gain, though his psychosocial stabilization is first priority at present. I see no medical contraindications to this patient's continued stay on the inpatient behavioral health unit or to any psychiatric medications or procedures. Thank you very much for including me in the care of this patient, and please do not hesitate to contact me or the hospitalist service should there be need for further medical evaluation. /[id number]/MODL MTDD
[2017-08-31 06:17] VITALS: BP 136/89
--- NOTE | 2017-08-31 10:04 | BDS ---
[f rep st] BEHAVIORAL HEALTH DISCHARGE SUMMARY REASON FOR ADMISSION: Pertinent data from psychiatric assessment and history dated 08/30/2017. The patient stated, "I am here because I am on an M1 hold. Hold was put on my name because I was having a heart attack, and they didn't believe me." The patient was admitted involuntarily on an M1 hold due to being gravely disabled and is hospitalized for safety, crisis stabilization, and medication evaluation. The patient has made multiple trips to the ER for chest pain, reporting that he is having a heart attack. The patient is seen by ER staff each time and is released with no complications and no clinical findings regarding physical causes of the chest pain. ADMITTING DIAGNOSES: Somatic symptom disorder, severe, with predominant pain; generalized anxiety disorder; cannabis use disorder, moderate, in controlled environment. ADMISSION PHYSICAL EXAM: The patient was seen by Dr. Blum on 08/30/2017 for an internal medicine consultation. Reason for referral was medical clearance for inpatient Behavioral Health stay. Dr. Blum reported he saw no medical contraindications to the patient's continued stay on the inpatient behavioral health unit or to any psychiatric medications or procedures. For further details, please refer to Dr. Blum's note. ADMISSION LABS: CBC showed an elevated white blood cell count of 12.97. There was no left shift. There were predominantly lymphocytes and monocytes. Otherwise, CBC was within normal limits. Serum chemistry revealed a slightly low potassium at 3.2. The patient had a slightly low carbon dioxide at 20. Glucose was elevated at 113, but was likely not fasting, drawn at 2230. Hemoglobin A1c is 5.4. Lipid panel revealed a cholesterol in the normal range of 142, a low LDL at 60, and HDL at 61. A toxicology screen several days ago was positive for marijuana and yesterday was positive for benzodiazepines in the urine toxicology screen. Serum toxicology screen was negative for ethyl alcohol. HOSPITAL COURSE: The most prominent symptom and behavior while the patient was here was mild anxiety. Treatment modalities utilized were milieu and group therapy. The patient has improved considerably, with no signs of psychiatric symptoms and no psychiatric symptoms expressed at discharge. The patient has improved since admission, states to be in stable condition, feels safe to discharge, and contracts for safety. Patient's response to treatment was good. There were no adverse or unexpected results of treatment. The patient was safe throughout his stay, active in treatment, engaged in groups, and was appropriate with staff and other patients. The treatment team consensus is the patient is in stable condition and is safe to discharge today. CONDITION ON DISCHARGE: Patient is in stable condition and is no longer a danger to self or others, and is not gravely disabled due to mental illness. Patient is no longer in need of inpatient level of care, and can be safely and effectively treated within the community. The patients level of risk at time of discharge is low based on the risk assessment below following this discharge summary. MSE: The patient is casually dressed and with good hygiene, and looks stated age. Patient is sitting, posture is upright, and position is relaxed. Patient appears awake, alert, and responds appropriately and reasonably during interview. Patient is engaged, relates well to interviewer, and emotional facial expression is appropriate to situation and changes appropriately with topic. Patient is cooperative, makes comfortable eye contact, and movements are voluntary, deliberate, coordinated, and smooth and even with no inappropriate movements. Patient makes laryngeal sounds effortlessly and shares conversation appropriately; pace of conversation is appropriate, and stream of talking is fluent; articulation is clear and understandable; word choice is effortless and appropriate for education level; completes sentences, occasionally pausing to think; rate and volume are appropriate for interview and setting. Patient reports mood as euthymic. Patients affect is stable with full variable range, congruent with mood, and appropriate to speech and circumstances. Patient has linear and logical thinking, with no loose associations, tangential thought, thought blocking, concrete thinking, or any other signs of formal thought disorder. Patient denies suicidal and homicidal ideation, and denies hallucinations and delusions. Patient appears to be a reliable historian with sound judgement and good insight into current condition. Patient has no apparent dysfunction in recent or remote memory noted , and no evidence of gross cognitive dysfunction noted at any point during the interview. DISCHARGE DIAGNOSES: Somatic symptom disorder, severe, with predominant pain; generalized anxiety disorder; cannabis use disorder, moderate. DISCHARGE MEDICATIONS: None. DISPOSITION: The patient left the hospital independently and voluntarily with plan to return to his home. FOLLOWUP: Recommend upon discharge to establish routine medication management treatment with a psychiatric provider, establish routine therapy appointments including CBT for anxiety and somatic symptom disorder, and follow-up with a primary care provider. Recommend patient abstain from using MJ as potential to both trigger and exacerbate mental health illnesses. Patient reports and understands and agrees to follow-up with outpatient services and to abstain from using MJ and other illicit substances. tool coordinator reports the appropriate outpatient follow-up services have been established and outpatient appointments have been scheduled. The patient received written instructions with times and dates of outpatient follow-up appointments. The following follow -up recommendations were provided to the patient at discharge: Continue psychotropic medications as prescribed and attend appointments as scheduled. Report any side effects to a psychiatric outpatient provider, a primary care provider, or other health day care worker. Address any questions or problems concerning the psychotropic medications with a psychiatric outpatient provider, a primary care provider, or other health day care worker. Contact [facility] or [facility], or go to the nearest emergency room, if you are ever a danger to yourself/others, or unable to care for yourself. As soon as possible , establish a routine medication management treatment with a psychiatric provider, establish routine therapy appointments, and follow-up with a primary care provider. LEGAL COURSE: The patient was admitted on an M1 hold for involuntary psychiatric hospitalization. Patient discharged today voluntarily and independently. ATTITUDE AT TIME OF DISCHARGE: The patient's attitude was positive at time of discharge, and the patient reports looking forward to discharging today. Patient reports he feels safe at discharge, is no longer a danger to himself or others, is in stable condition and contracts for safety. Patient reports internal protective factors as coping skills he has learned while hospitalized here. Plans to continue to practice these coping skills after discharge. Patient reports external protective factors as his friends and family and his future plans. The patient describes looking forward to working toward financial independence and getting on some stable grounding of sorts after discharge. 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 The patient reports he has completed his Wellness plan and has reviewed Wellness plan with his nurse. LABS AND STUDIES: There were no pending labs or studies at time of discharge. ADVANCE DIRECTIVES: There were no advance directives on file, and patient was full code during hospitalization. /[id number]/MODL MTDD
== END 2017-08-31 10:25 | disposition home or self-care (01) | DRG 882 ==
LOC: BBEH 17:50
PROVIDERS: ADMIT Psychiatry & Neurology Psychiatry; ATTEND Psychiatry & Neurology Psychiatry
DX: F45.1 Undifferentiated somatoform disorder (principal); F41.1 Generalized anxiety disorder; F12.20 Cannabis dependence, uncomplicated; R07.89 Other chest pain; E66.9 Obesity, unspecified

== ENCOUNTER 2017-08-31 18:35 | Emergency (ER) | payer MEDICAID, OTHER ==
--- NOTE | 2017-08-31 19:03 | EDPHY ---
H & P Stated Complaint: "racing heart". Time Seen by Provider: 08/31/17 18:54 HPI/ROS: CHIEF COMPLAINT: Anxiety HISTORY OF PRESENT ILLNESS: The patient is a 22-year-old man with a history of cannabis abuse and generalized anxiety disorder. He was discharged from [address] [place] [address] this morning after being treated for the same. He states that he did not smoke cannabis today because of this history. About 30 min ago however he began feeling like his heart was racing and felt very anxious. No shortness of breath. He describes chest pain which typically goes along with his anxiety reactions. He denies any stimulant medications or drugs. No lightheadedness or dizziness. REVIEW OF SYSTEMS: Constitutional: denies: chills, fever, recent illness, recent injury EENTM: denies: blurred vision, double vision, nose congestion Respiratory: denies: cough, shortness of breath Cardiac: See HPI Gastrointestinal/Abdominal: denies: abdominal pain, diarrhea, nausea, vomiting, blood streaked stools Genitourinary: denies: dysuria, frequency, hematuria, pain Musculoskeletal: denies: joint pain, muscle pain Skin: denies: lesions, rash, jaundice, bruising Neurological: denies: headache, numbness, paresthesia, tingling, dizziness, weakness Hematologic/Lymphatic: denies: blood clots, easy bleeding, easy bruising Immunologic/allergic: denies: HIV/AIDS, transplant EXAM: GENERAL: Well-appearing, well-nourished and in no acute distress. HEAD: Atraumatic, normocephalic. EYES: Pupils equal round and reactive to light, extraocular movements intact, sclera anicteric, conjunctiva are normal. ENT: TMs normal, nares patent, oropharynx clear without exudates. Moist mucous membranes. NECK: Normal range of motion, supple without lymphadenopathy or JVD. LUNGS: Breath sounds clear to auscultation bilaterally and equal. No wheezes rales or rhonchi. HEART: Regular rate and rhythm without murmurs, rubs or gallops. ABDOMEN: Soft, nontender, normoactive bowel sounds. No guarding, no rebound. No masses appreciated. BACK: No CVA tenderness, no spinal tenderness, step-offs or deformities EXTREMITIES: Normal range of motion, no pitting or edema. No clubbing or cyanosis. NEUROLOGICAL: Cranial nerves II through XII grossly intact. Normal speech, normal gait. 5/5 strength, normal movement in all extremities, normal sensation PSYCH: Normal mood, normal affect. SKIN: Warm, dry, normal turgor, no visible rashes or lesions. Source: Patient Exam Limitations: No limitations - Personal History Current Tetanus Diphtheria and Acellular Pertussis (TDAP): Yes - Medical/Surgical History Hx Asthma: No Hx Chronic Respiratory Disease: No Hx Diabetes: No Hx Cardiac Disease: No Hx Renal Disease: No Hx Cirrhosis: No Hx Alcoholism: No Hx HIV/AIDS: No Hx Splenectomy or Spleen Trauma: No Other PMH: Tonsilectomy as child. - Family History Significant Family History: No pertinent family hx - Social History Smoking Status: Never smoked Alcohol Use: None Constitutional: Initial Vital Signs Temperature (C) 36.7 C 08/31/17 18:37 Heart Rate 89 08/31/17 18:37 Respiratory Rate 16 08/31/17 18:37 Blood Pressure 137/76 H 08/31/17 18:37 O2 Sat (%) 96 08/31/17 18:37 O2 Delivery Mode Room Air Allergies/Adverse Reactions: No Known Allergies Allergy (Verified 08/28/17 22:31) Home Medications: Medication Instructions Recorded NK [No Known Home Meds] 08/29/17 Medical Decision Making - Diagnostics EKG Interpretation: An EKG obtained and was read and documented in trace view. Please see trace view for full reading and report. Sinus rhythm ED Course/Re-evaluation: Patient correlates exhibiting anxiety symptoms. His vital signs are stable. His heart rate is in the 60s. His EKG is reassuring. I did offer anxiolytics but he declines. He is not on other medications. I will discharge him at this time. Differential Diagnosis: Partial list of the Differential diagnosis considered include but were not limited to; anxiety attack, anxiety about health, arrhythmia and although unlikely based on the history and physical exam, I also considered acute coronary disease, PE, infection. I discussed these differential diagnoses and the plan with the patient as well as the usual and expected course. The patient understands that the diagnosis is provisional and that in medicine we are not always correct and that further workup is often warranted. Usual and customary warnings were given. All of the patient's questions were answered. The patient was instructed to return to the emergency department should the symptoms at all worsen or return, otherwise to followup with the physician as we discussed. Departure - Departure Disposition: Home, Routine, Self-Care Clinical Impression: Generalized anxiety disorder Condition: Fair Instructions: Generalized Anxiety Disorder (ED) Referrals: NONE *PRIMARY CARE P,. [Primary Care Provider] - As per Instructions Kevin Soler MD [place] [place] - As per Instructions
--- NOTE | 2017-08-31 19:04 | CPEKG ---
Heart Rate: 67 RR Interval: 896 P-R Interval: 176 QRSD Interval: 98 QT Interval: 372 QTC Interval: 393 P Ringling: 27 QRS Ringling: 55 T Wave Ringling: 23 EKG Severity - ABNORMAL ECG - EKG Impression: SINUS RHYTHM Electronically Signed By: Carlos Flores 31-Aug-2017 19:04:41
[2017-08-31 19:12] VITALS: BP 117/59
== END 2017-08-31 19:17 | disposition home or self-care (01) ==
DX: F41.1 Generalized anxiety disorder (principal)

== ENCOUNTER 2017-09-01 09:40 | Emergency (ER) | payer MEDICAID, OTHER ==
--- NOTE | 2017-09-01 09:45 | EDPHY ---
H & P Time Seen by Provider: 09/01/17 09:41 HPI/ROS: Greeted EMS on arrival CHIEF COMPLAINT: "I am freaking out" HISTORY OF PRESENT ILLNESS: 22-year-old male history of cannabis abuse, generalized anxiety disorder, discharged from [address] [place] [address] yesterday after being treated for the same. He was seen emergency department yesterday afternoon for same complaints, declined medication. He returns today after calling 911 complaining of feeling a "racing heart and freaking out". He declined all medication offered by EMS. Denies suicidal homicidal ideation. Denies acute cannabis abuse. Denies methamphetamine abuse. REVIEW OF SYSTEMS: A ten point review of systems was performed and is negative with the exception of the items mentioned in the HPI PAST MEDICAL & SURGICAL HISTORY: Generalized anxiety disorder. Cannabis abuse history. SOCIAL HISTORY:last used cannabis 5 days ago PHYSICAL EXAM (Prior to examination, patient consented to physical exam, hands were washed and my usual and customary physical exam procedures followed) 1) GENERAL: Well-developed, well-nourished, alert and oriented. Appears acutely anxious, he is crying, hyperventilating, carpal pedal spasms noted 2) HEAD: Normocephalic, atraumatic 3) HEENT: Pupils equal, round, reactive to light bilaterally. Sclera anicteric. Nasopharynx, oropharynx, clear, no lesions. 4) NECK: Full range of motion, no meningeal signs. 5) LUNGS: Clear auscultation bilaterally, no wheezes, no rhonchi, no retractions. 6) HEART: Regular rate and rhythm, no murmur, no heave, no gallop. 7) ABDOMEN: No guarding, no rebound, no focal tenderness, negative McBurney's, negative Lantigua's, negative Rovsing's, negative peritoneal sign, 8) MUSCULOSKELETAL: Carpal pedal spasms noted Moving all extremities, no focal areas of tenderness, no obvious trauma. No peripheral edema or discoloration. 9) BACK: No CVA tenderness, no midline vertebral tenderness, no fluctuance, no step-off, no obvious trauma, no visual or palpable abnormality. 10) SKIN: No rash, no petechiae. 11) Psychiatric: Patient is oriented X 3, there is no agitation. DIFFERENTIAL DIAGNOSIS: In no particular include but limited to cardiac dysrhythmia, pulmonary embolus, acute anxiety , pneumothorax - Medical/Surgical History Hx Asthma: No Hx Chronic Respiratory Disease: No Hx Diabetes: No Hx Cardiac Disease: No Hx Renal Disease: No Hx Cirrhosis: No Hx Alcoholism: No Hx HIV/AIDS: No Hx Splenectomy or Spleen Trauma: No Other PMH: Tonsilectomy as child. - Social History Smoking Status: Never smoked Constitutional: Initial Vital Signs Temperature (C) 37.6 C 09/01/17 09:43 Heart Rate 102 H 09/01/17 09:43 Respiratory Rate 20 09/01/17 09:43 Blood Pressure 123/91 H 09/01/17 09:43 O2 Sat (%) 97 09/01/17 09:43 O2 Delivery Mode Room Air Allergies/Adverse Reactions: No Known Allergies Allergy (Verified 08/28/17 22:31) Home Medications: Medication Instructions Recorded LORazepam [Ativan 1 mg (RX)] 1 mg PO Q6 PRN #3 tab 09/01/17 Medical Decision Making ED Course/Re-evaluation: 9:53 a.m.: I have reviewed the patient's old medical records. EMS crew greeted on arrival by myself. He appears to be acutely anxious without suicidal or homicidal ideation. I provided verbal reassurance, calming techniques, turning the lights down, and these have been ineffective. I have offered benzodiazepine or other anxiolytics and he declines all this. He declines IV placement or medication. It is not clear what he wants to do in the emergency department. He would like some time to think about the medication. I reviewed the patient's medical records. He was evaluated yesterday emergency department. Will hold on diagnostic studies at this time to see if he responds to medications of he accepts these. 10:00 a.m.: Patient agrees to intranasal Ativan 10:37 a.m.: Patient re-evaluated after 2 mg of intranasal Ativan. At this time he appears significantly more calm, his breathing rate has normalized, heart rate in the 70s, carpal pedal spasms resolved, he is smiling, no longer tearful . he apologizes to me at this time. Will observe him for further period of time. 11:00 a.m.: Re-evaluation, sleeping 11:20 a.m.: Re-evaluation, awake, calm, cooperative, heart rate normalized, asymptomatic. He would like to be discharged. Doubt PE, doubt [place]. Usual and customary discharge precautions and instructions provided. He feels comfortable being discharged. I saw this patient independently based on established practice protocols. Care of patient under supervision of primary Supervising physician Dr Santos with whom I discussed case. - Data Points Medications Given: Discontinued Medications Lorazepam (Ativan Injection) 2 mg NASAL EDNOW ONE Stop: 09/01/17 09:59 Last Admin: 09/01/17 10:05 Dose: 2 mg Departure - Departure Disposition: Home, Routine, Self-Care Clinical Impression: Acute anxiety Condition: Good Instructions: Anxiety (ED) Additional Instructions: Return to the ER if you develop complaints of anxiety, chest pain, shortness of breath, spasms of your hands or feet or any other symptoms that concern you Referrals: [facility] [Outside] - 09/03/17 Prescriptions: LORazepam [Ativan 1 mg (RX)] 1 mg PO Q6 PRN #3 tab PRN Reason: Anxiety
[2017-09-01] MEDS ORDERED: LORazepam 2 MG/ML INJ NASAL ONE (09:58)
[2017-09-01 11:38] VITALS: BP 121/78
== END 2017-09-01 11:38 | disposition home or self-care (01) ==
LOC: EDUNIT#
DX: F41.9 Anxiety disorder, unspecified (principal)
CPT/HCPCS: J2060

== ENCOUNTER 2017-09-04 03:57 | Emergency (ER) | payer MEDICAID, OTHER ==
[2017-09-04] MEDS ORDERED: NS 1,000 ML IV ONE (04:06)
[2017-09-04] MEDS ORDERED: LIDOCAINE 2% VISCOUS 15 ML UDCUP PO ONE (04:07)
[2017-09-04] MEDS ORDERED: HYOSCYAMINE SULFATE 0.125 MG TAB PO ONE (04:07)
[2017-09-04] MEDS ORDERED: MAG HYDROX/AL HYDROX/SIMETH 30 ML UDCUP PO ONE (04:07)
--- NOTE | 2017-09-04 04:17 | EDPHY ---
H & P Time Seen by Provider: 09/04/17 04:12 HPI/ROS: HPI CHIEF COMPLAINT: Anxiety, burning sensation in chest HISTORY OF PRESENT ILLNESS: This 22-year-old male, presents emergency room by EMS for burning sensation in his chest and anxiety. Patient reports that he woke up around 230 in the morning it is now 415 in the morning with burning sensation in his chest goes up to his throat. This made him very anxious and he called 911. Of note this patient has been in this emergency room eat other times very similar complaints. Mainly complains of anxiety, chest pain. He has been on M1 hold multiple times and [facility] He presents tonight stating that he feels very anxious with this burning sensation in his chest goes from his epigastric region up into his throat. He has no jaw pain or neck pain, denies arm pain, denies focal numbness or tingling. Denies shortness of breath or pleuritic pain. Days main reason why call 911 his anxiety. Of note patient was seen in multiple times in August. I reviewed these records. Past Medical History: Generalized anxiety disorder, chronic marijuana use, underlying mental illness possible schizophrenia Past Surgical History: Tonsillectomy Social History: Smokes marijuana regularly. ROS REVIEW OF SYSTEMS: A comprehensive 10 point review of systems is otherwise negative aside from elements mentioned in the history of present illness. Exam Constitutional nontoxic appearing in no acute distress, triage nursing summary reviewed, vital signs reviewed, awake/alert. Eyes normal conjunctivae and sclera, EOMI, PERRLA. HENT normal inspection, atraumatic, moist mucus membranes, no epistaxis, neck supple/ no meningismus, no raccoon eyes. Respiratory clear to auscultation bilaterally, normal breath sounds, no respiratory distress, no wheezing. Cardiovascular rate normal, regular rhythm, no murmur, no edema, distal pulses normal. Gastrointestinal soft, non-tender, no rebound, no guarding, normal bowel sounds, no distension, no pulsatile mass. Genitourinary no CVA tenderness. Musculoskeletal no midline vertebral tenderness, full range of motion, no calf swelling, no tenderness of extremities, no meningismus, good pulses, neurovascularly intact. Skin pink, warm, & dry, no rash, skin atraumatic. Neurologic awake, alert and oriented x 3, AAOx3, moves all 4 extremities equally, motor intact, sensory intact, CN II-XII intact, normal cerebellar, normal vision, normal speech. Psychiatric normal mood/affect. Heme/Lymph/Immune no lymphadenopathy. Differential Diagnosis: Includes but is not limited to in a particular order acute anxiety, esophageal reflux, esophageal spasm, acute coronary syndrome, PE , pneumothorax, pneumonia Medical Decision Making: Plan for this patient complains of burning pain from his epigastric region to his throat, will give GI cocktail to see if this improves his symptoms. Will obtain EKG to rule out acute coronary syndrome, check troponin D-dimer, chest x-ray re-evaluate. I think acute coronary syndrome given his description of the discomfort is unlikely. Re-evaluation: EKG interpretation by me on record in [employer] system. Impression time of EKG 4:19 a.m., sinus rhythm rate of [address] elevation or ST depression no significant T-wave abnormalities. Nonischemic unremarkable EKG. When compared to old EKG is unremarkable. Unchanged from 08/31/2017. Troponin 0.00 DDimer negative. EKG nonischemic and unchanged from previous EKG. ED x-ray chest one view: Negative for acute cardiopulmonary disease. EKG interpretation by me on record in [employer] system. Impression time of EKG 6:08 a.m. Sinus bradycardia rate of 41, EKG was performed while patient is resting. No chest pain with this EKG. EKG shows no signs of acute ischemia. No ST elevation no ST depression no significant T-wave abnormalities. Similar to previous EKG. [id number]: Patient is sleeping resting comfortably no acute distress. Re- examination states he feels better after GI cocktail. Pain is gone. He has been sleeping and resting. No acute distress. Recommend he stays away from eating spicy fatty greasy foods. Recommend ranitidine daily. Return precautions discussed with the understands return emergency room develops worsening pain fever vomiting questions or concerns. 2nd troponin 0.00. Patient resting comfortably in fact he sleeping at this time. No acute distress. Stable for discharge. Recommend return precautions. Zantac. No spicy fatty greasy foods. Source: Patient, EMS - Medical/Surgical History Hx Asthma: No Hx Chronic Respiratory Disease: No Hx Diabetes: No Hx Cardiac Disease: No Hx Renal Disease: No Hx Cirrhosis: No Hx Alcoholism: No Hx HIV/AIDS: No Hx Splenectomy or Spleen Trauma: No Other PMH: Tonsilectomy as child. - Social History Smoking Status: Never smoked Constitutional: Initial Vital Signs Temperature (C) 36.4 C 09/04/17 04:00 Heart Rate 62 09/04/17 04:00 Respiratory Rate 18 09/04/17 04:00 Blood Pressure 121/64 H 09/04/17 04:00 O2 Sat (%) 99 09/04/17 04:00 O2 Delivery Mode Room Air Allergies/Adverse Reactions: No Known Allergies Allergy (Verified 08/28/17 22:31) Home Medications: Medication Instructions Recorded LORazepam [Ativan 1 mg (RX)] 1 mg PO Q6 PRN #3 tab 09/01/17 Medical Decision Making - Data Points Laboratory Results: Laboratory Results 09/04/17 04:20 09/04/17 04:20 09/04/17 09/04/17 09/04/17 06:10 04:26 04:20 WBC RBC Hgb Hct MCV MCH MCHC RDW Plt Count MPV Neut % (Auto) Lymph % (Auto) [place] % (Auto) Eos % (Auto) Baso % (Auto) Nucleat RBC Rel Count Absolute Neuts (auto) Absolute Lymphs (auto) Absolute Monos (auto) Absolute Eos (auto) Absolute Basos (auto) Absolute Nucleated RBC Immature Gran % Immature Gran # D-Dimer < 0.27 ug/mLFEU ug/mLFEU (0.00-0.50) Sodium Potassium Chloride Carbon Dioxide Anion Gap BUN Creatinine Estimated GFR Glucose Calcium Total Bilirubin Conjugated Bilirubin Unconjugated Bilirubin AST ALT Alkaline Phosphatase POC Troponin I 0.00 ng/mL ng/mL 0.00 ng/mL ng/mL (0.00-0.08) (0.00-0.08) NT-Pro-B Natriuret Pep Total Protein Albumin Lipase 09/04/17 09/04/17 04:20 04:20 WBC 7.24 10^3/uL 10^3/uL (3.80-9.50) RBC 4.56 10^6/uL 10^6/uL (4.40-6.38) Hgb 14.3 g/dL g/dL (13.7-17.5) Hct 41.3 % % (40.0-51.0) MCV 90.6 fL fL (81.5-99.8) MCH 31.4 pg pg (27.9-34.1) MCHC 34.6 g/dL g/dL (32.4-36.7) RDW 12.0 % % (11.5-15.2) Plt Count 290 10^3/uL 10^3/uL (150-400) MPV 8.9 fL fL (8.7-11.7) Neut % (Auto) 33.7 % L % (39.3-74.2) Lymph % (Auto) 51.8 % H % (15.0-45.0) [place] % (Auto) 12.0 % % (4.5-13.0) Eos % (Auto) 1.4 % % (0.6-7.6) Baso % (Auto) 0.7 % % (0.3-1.7) Nucleat RBC Rel Count 0.0 % % (0.0-0.2) Absolute Neuts (auto) 2.44 10^3/uL 10^3/uL (1.70-6.50) Absolute Lymphs (auto) 3.75 10^3/uL H 10^3/uL (1.00-3.00) Absolute Monos (auto) 0.87 10^3/uL H 10^3/uL (0.30-0.80) Absolute Eos (auto) 0.10 10^3/uL 10^3/uL (0.03-0.40) Absolute Basos (auto) 0.05 10^3/uL 10^3/uL (0.02-0.10) Absolute Nucleated RBC 0.00 10^3/uL 10^3/uL (0-0.01) Immature Gran % 0.4 % % (0.0-1.1) Immature Gran # 0.03 10^3/uL 10^3/uL (0.00-0.10) D-Dimer Sodium 140 mEq/L mEq/L (135-145) Potassium 4.2 mEq/L mEq/L (3.3-5.0) Chloride 112 mEq/L H mEq/L (97-110) Carbon Dioxide 23 mEq/l mEq/l (22-31) Anion Gap 5 mEq/L L mEq/L (8-16) BUN 14 mg/dL mg/dL (7-23) Creatinine 0.8 mg/dL mg/dL (0.7-1.3) Estimated GFR > 60 Glucose 93 mg/dL mg/dL (70-100) Calcium 9.6 mg/dL mg/dL (8.5-10.4) Total Bilirubin 2.3 mg/dL H mg/dL (0.1-1.4) Conjugated Bilirubin 0.3 mg/dL mg/dL (0.0-0.5) Unconjugated Bilirubin 2.0 mg/dL H mg/dL (0.0-1.1) AST 19 IU/L IU/L (17-59) ALT 24 IU/L IU/L (21-72) Alkaline Phosphatase 58 IU/L IU/L (38-126) POC Troponin I NT-Pro-B Natriuret Pep 19 pg/mL pg/mL (0-125) Total Protein 6.9 g/dL g/dL (6.3-8.2) Albumin 4.2 g/dL g/dL (3.5-5.0) Lipase 62 IU/L IU/L (23-300) Medications Given: Discontinued Medications Hyoscyamine Sulfate (Levsin, Hyomax-Sl) 0.25 mg PO ONCE ONE Stop: 09/04/17 04:08 Last Admin: 09/04/17 04:32 Dose: 0.25 mg Sodium Chloride (Ns) 1,000 mls @ 0 mls/hr IV EDNOW ONE; Wide Open PRN Reason: Protocol Stop: 09/04/17 04:07 Last Admin: 09/04/17 04:31 Dose: 1,000 mls Point of Care Test Results: Chemistry 09/04/17 09/04/17 06:10 04:26 POC Troponin I 0.00 ng/mL ng/mL 0.00 ng/mL ng/mL (0.00-0.08) (0.00-0.08) Departure - Departure Disposition: Home, Routine, Self-Care Clinical Impression: Anxiety GERD (gastroesophageal reflux disease) Qualifiers: Esophagitis presence: with esophagitis Qualified Code(s): K21.0 - Gastro- esophageal reflux disease with esophagitis Condition: Good Instructions: Gastroesophageal Reflux Disease (ED), Anxiety (ED) Additional Instructions: 1. Refrain from smoking marijuana. 2. Stay well-hydrated do not eat spicy fatty greasy foods. 3. Return if worsening symptoms questions or concerns 4. Follow up with primary care doctor Referrals: NONE *PRIMARY CARE P,. [Primary Care Provider] - As per Instructions [facility],. [Clinic] - As per Instructions
[2017-09-04 04:31] LABS: PLATELET COUNT 290 10^3/uL (150-400)
--- NOTE | 2017-09-04 05:12 | CPEKG ---
Heart Rate: 60 RR Interval: 1000 P-R Interval: 160 QRSD Interval: 104 QT Interval: 400 QTC Interval: 400 P [place]: 15 QRS [place]: 66 T Wave [place]: 30 EKG Severity - BORDERLINE ECG - EKG Impression: SINUS RHYTHM EKG Impression: BORDERLINE Q WAVES IN INFERIOR LEADS EKG Impression: INFERIOR Q WAVES, PROBABLY NORMAL VARIATION Electronically Signed By: Clovis Truong 05-Sep-2017 06:25:46
--- NOTE | 2017-09-04 06:10 | CPEKG ---
Heart Rate: 41 RR Interval: 1463 P-R Interval: 168 QRSD Interval: 104 QT Interval: 428 QTC Interval: 354 P [place]: 19 QRS [place]: 59 T Wave [place]: 27 EKG Severity - BORDERLINE ECG - EKG Impression: SINUS BRADYCARDIA EKG Impression: BORDERLINE Q WAVES IN INFERIOR LEADS EKG Impression: INFERIOR Q WAVES, PROBABLY NORMAL VARIATION Electronically Signed By: Clovis Truong 05-Sep-2017 06:25:21
[2017-09-04 06:57] VITALS: BP 107/51
== END 2017-09-04 06:56 | disposition home or self-care (01) ==
LOC: EDUNIT#
DX: F41.9 Anxiety disorder, unspecified (principal); K21.0 Gastro-esophageal reflux disease with esophagitis; E86.9 Volume depletion, unspecified
CPT/HCPCS: 84484-PO

== ENCOUNTER 2017-09-16 02:23 | Emergency (ER) | payer MEDICAID ==
[2017-09-16] MEDS ORDERED: NS 1,000 ML IV ONE (02:28)
[2017-09-16] MEDS ORDERED: LORazepam 2 MG/ML INJ IVP ONE (02:28)
[2017-09-16] MEDS ORDERED: KETOROLAC 15 MG/1 ML SDV IVP ONE (02:29)
--- NOTE | 2017-09-16 02:33 | EDPHY ---
H & P Time Seen by Provider: 09/16/17 02:31 HPI/ROS: HPI CHIEF COMPLAINT: Chest pain. HISTORY OF PRESENT ILLNESS: 22-year-old male, who I am very familiar with who I saw previously on September 04 for chest pain with a negative workup. He presents emergency room with left-sided pain in his chest. Describes sharp stabbing it in his left axillary region. Does not radiate anywhere. It is worse when he takes a deep breath in. This started about 2 hr ago. He denies any fever, shortness of breath, denies chest wall trauma however does hurt when you press on his left chest wall. No crepitus. He called 911 as been feeling very anxious about this. Of note this patient has been in the emergency room multiple times for same complaint. Negative previous workups. Past Medical History: Generalized anxiety disorder, chronic marijuana use, per medical records schizophrenia Past Surgical History: Denies any recent surgery Social History: Marijuana use daily. Denies other drugs. Family History: Noncontributory ROS REVIEW OF SYSTEMS: A comprehensive 10 point review of systems is otherwise negative aside from elements mentioned in the history of present illness. Exam Constitutional nontoxic appearing in no acute distress, triage nursing summary reviewed, vital signs reviewed, awake/alert. Eyes normal conjunctivae and sclera, EOMI, PERRLA. HENT normal inspection, atraumatic, moist mucus membranes, no epistaxis, neck supple/ no meningismus, no raccoon eyes. Respiratory clear to auscultation bilaterally, normal breath sounds, no respiratory distress, no wheezing. Cardiovascular left lateral chest wall under the axilla tender palpation, no crepitus, no evidence of chest wall trauma on exam rate normal, regular rhythm , no murmur, no edema, distal pulses normal. Gastrointestinal soft, non-tender, no rebound, no guarding, normal bowel sounds, no distension, no pulsatile mass. Genitourinary no CVA tenderness. Musculoskeletal no midline vertebral tenderness, full range of motion, no calf swelling, no tenderness of extremities, no meningismus, good pulses, neurovascularly intact. Skin pink, warm, & dry, no rash, skin atraumatic. Neurologic awake, alert and oriented x 3, AAOx3, moves all 4 extremities equally, motor intact, sensory intact, CN II-XII intact, normal cerebellar, normal vision, normal speech. Psychiatric normal mood/affect. Heme/Lymph/Immune no lymphadenopathy. Differential diagnosis includes but is not limited to: ACS, atypical chest pain , pneumothorax, pneumonia, pulmonary embolism, aortic dissection, congestive heart failure, tumor, musculoskeletal pain, esophageal pain, GERD, peptic ulcer disease, pancreatitis Medical Decision Making: Plan for this patient IV establishment chest x-ray, EKG, check D-dimer and troponin. IV Ativan for anxiety, IV Toradol for musculoskeletal chest wall pain and re-evaluate. I think it is unlikely to be acute coronary syndrome given multiple previous negative work ups, additionally no significant risks factors, and additionally underlying anxiety disorder. Re-evaluation: EKG interpretation by me on record in [employer] system. Impression time of EKG: Time of EKG 2:30 a.m., this is sinus bradycardia rate of 48 without any signs of acute ischemia no ST elevation or ST depression no significant T-wave abnormality. When compared to the patient's old EKG dated 09/14/2017 very similar to previous EKGs. 0410: Patient initial troponin negative. D-dimer was unable to be run due to not enough blood in the blood 2. I requested more blood from the patient however he has declined to give any more blood also is refusing any medications. This time he states he just wants to sleep. 0445: Patient is sleeping no acute distress. 0533: Patient asking for a bus pass or taxi voucher. Denies any chest pain he has been sleeping here in the emergency room. Repeat EKG repeat EKG: Time of EKG 5:32 a.m., sinus bradycardia rate of 42 no signs of acute ischemia no ST elevation no ST depression no significant T-wave abnormalities. ED x-ray chest one view negative for acute cardiopulmonary disease. Repeat troponin 0.00. Patient resting comfortably without chest pain return precautions discussed with him. Additionally did recommend he follows up with [facility] or his primary care doctor about his anxiety. He understands and is agreeable for this. Source: Patient, EMS - Medical/Surgical History Hx Asthma: No Hx Chronic Respiratory Disease: No Hx Diabetes: No Hx Cardiac Disease: No Hx Renal Disease: No Hx Cirrhosis: No Hx Alcoholism: No Hx HIV/AIDS: No Hx Splenectomy or Spleen Trauma: No Other PMH: Tonsilectomy as child., anxiety, childhood astma, ETOH - Social History Smoking Status: Former smoker Constitutional: Initial Vital Signs Temperature (C) 36.6 C 09/16/17 02:26 Heart Rate 55 L 09/16/17 02:26 Respiratory Rate 13 09/16/17 02:26 Blood Pressure 113/72 09/16/17 02:26 O2 Sat (%) 98 09/16/17 02:26 O2 Delivery Mode Room Air Allergies/Adverse Reactions: No Known Allergies Allergy (Verified 08/28/17 22:31) Home Medications: Medication Instructions Recorded NK [No Known Home Meds] 09/14/17 Medical Decision Making - Data Points Laboratory Results: Laboratory Results 09/16/17 02:46 09/16/17 02:46 09/16/17 09/16/17 09/16/17 02:52 02:46 02:46 WBC RBC Hgb Hct MCV MCH MCHC RDW Plt Count MPV Neut % (Auto) Lymph % (Auto) [place] % (Auto) Eos % (Auto) Baso % (Auto) Nucleat RBC Rel Count Absolute Neuts (auto) Absolute Lymphs (auto) Absolute Monos (auto) Absolute Eos (auto) Absolute Basos (auto) Absolute Nucleated RBC Immature Gran % Immature Gran # D-Dimer TNP Sodium 141 mEq/L mEq/L (135-145) Potassium 3.7 mEq/L mEq/L (3.3-5.0) Chloride 108 mEq/L mEq/L (97-110) Carbon Dioxide 25 mEq/l mEq/l (22-31) Anion Gap 8 mEq/L mEq/L (8-16) BUN 20 mg/dL mg/dL (7-23) Creatinine 0.8 mg/dL mg/dL (0.7-1.3) Estimated GFR > 60 Glucose 87 mg/dL mg/dL (70-100) Calcium 9.3 mg/dL mg/dL (8.5-10.4) Magnesium 2.0 mg/dL mg/dL (1.6-2.3) Total Bilirubin 1.8 mg/dL H mg/dL (0.1-1.4) Conjugated Bilirubin 0.1 mg/dL mg/dL (0.0-0.5) Unconjugated Bilirubin 1.7 mg/dL H mg/dL (0.0-1.1) AST 26 IU/L IU/L (17-59) ALT 29 IU/L IU/L (21-72) Alkaline Phosphatase 76 IU/L IU/L (38-126) POC Troponin I 0.00 ng/mL ng/mL (0.00-0.08) NT-Pro-B Natriuret Pep 32 pg/mL pg/mL (0-125) Total Protein 6.4 g/dL g/dL (6.3-8.2) Albumin 3.8 g/dL g/dL (3.5-5.0) 09/16/17 02:46 WBC 8.81 10^3/uL 10^3/uL (3.80-9.50) RBC 4.41 10^6/uL 10^6/uL (4.40-6.38) Hgb 13.6 g/dL L g/dL (13.7-17.5) Hct 40.4 % % (40.0-51.0) MCV 91.6 fL fL (81.5-99.8) MCH 30.8 pg pg (27.9-34.1) MCHC 33.7 g/dL g/dL (32.4-36.7) RDW 12.0 % % (11.5-15.2) Plt Count 271 10^3/uL 10^3/uL (150-400) MPV 9.1 fL fL (8.7-11.7) Neut % (Auto) 41.4 % % (39.3-74.2) Lymph % (Auto) 44.7 % % (15.0-45.0) [place] % (Auto) 11.5 % % (4.5-13.0) Eos % (Auto) 1.2 % % (0.6-7.6) Baso % (Auto) 0.6 % % (0.3-1.7) Nucleat RBC Rel Count 0.0 % % (0.0-0.2) Absolute Neuts (auto) 3.65 10^3/uL 10^3/uL (1.70-6.50) Absolute Lymphs (auto) 3.94 10^3/uL H 10^3/uL (1.00-3.00) Absolute Monos (auto) 1.01 10^3/uL H 10^3/uL (0.30-0.80) Absolute Eos (auto) 0.11 10^3/uL 10^3/uL (0.03-0.40) Absolute Basos (auto) 0.05 10^3/uL 10^3/uL (0.02-0.10) Absolute Nucleated RBC 0.00 10^3/uL 10^3/uL (0-0.01) Immature Gran % 0.6 % % (0.0-1.1) Immature Gran # 0.05 10^3/uL 10^3/uL (0.00-0.10) D-Dimer Sodium Potassium Chloride Carbon Dioxide Anion Gap BUN Creatinine Estimated GFR Glucose Calcium Magnesium Total Bilirubin Conjugated Bilirubin Unconjugated Bilirubin AST ALT Alkaline Phosphatase POC Troponin I NT-Pro-B Natriuret Pep Total Protein Albumin Medications Given: Discontinued Medications Sodium Chloride (Ns) 1,000 mls @ 0 mls/hr IV EDNOW ONE; Wide Open PRN Reason: Protocol Stop: 09/16/17 02:29 Last Admin: 09/16/17 02:52 Dose: 1,000 mls Ketorolac Tromethamine (Toradol) 15 mg IVP EDNOW ONE Stop: 09/16/17 02:30 Last Admin: 09/16/17 02:51 Dose: Not Given Lorazepam (Ativan Injection) 0.5 mg IVP EDNOW ONE Stop: 09/16/17 02:29 Last Admin: 09/16/17 02:52 Dose: Not Given Point of Care Test Results: Chemistry 09/16/17 02:52 POC Troponin I 0.00 ng/mL ng/mL (0.00-0.08) Departure - Departure Disposition: Home, Routine, Self-Care Clinical Impression: Non-cardiac chest pain, Anxiety Condition: Good Instructions: Anxiety (ED) Additional Instructions: 1. Follow up with your primary care doctor 2. Return emergency room if you have any worsening symptoms questions or concerns Referrals: NONE *PRIMARY CARE P,. [Primary Care Provider] - As per Instructions [facility],. [Clinic] - As per Instructions [facility],. [Clinic] - As per Instructions
--- NOTE | 2017-09-16 02:40 | CPEKG ---
Heart Rate: 48 RR Interval: 1250 P-R Interval: 176 QRSD Interval: 106 QT Interval: 412 QTC Interval: 369 P [place]: 12 QRS [place]: 51 T Wave [place]: 25 EKG Severity - BORDERLINE ECG - EKG Impression: SINUS BRADYCARDIA EKG Impression: INFERIOR Q WAVES, PROBABLY NORMAL VARIATION Electronically Signed By: Alton Aly 16-Sep-2017 06:43:41
[2017-09-16 03:52] LABS: PLATELET COUNT 271 10^3/uL (150-400)
--- NOTE | 2017-09-16 05:36 | CPEKG ---
Heart Rate: 42 RR Interval: 1429 P-R Interval: 164 QRSD Interval: 102 QT Interval: 428 QTC Interval: 358 P [place]: 35 QRS [place]: 64 T Wave [place]: 42 EKG Severity - BORDERLINE ECG - EKG Impression: SINUS BRADYCARDIA EKG Impression: BORDERLINE Q WAVES IN INFERIOR LEADS EKG Impression: INFERIOR Q WAVES, PROBABLY NORMAL VARIATION Electronically Signed By: Alton Aly 16-Sep-2017 06:43:41
[2017-09-16 05:39] VITALS: BP 117/72
== END 2017-09-16 06:02 | disposition home or self-care (01) ==
LOC: EDUNIT#
DX: R07.89 Other chest pain (principal); F41.9 Anxiety disorder, unspecified; E86.9 Volume depletion, unspecified; Z87.891 Personal history of nicotine dependence
CPT/HCPCS: 84484-PO; J1885; J2060

== ENCOUNTER 2017-09-18 14:49 | Emergency (ER) | payer MEDICAID, OTHER ==
[2017-09-18 15:05] VITALS: BP 133/106
--- NOTE | 2017-09-18 15:05 | EDPHY ---
H & P - Medical/Surgical History Hx Asthma: No Hx Chronic Respiratory Disease: No Hx Diabetes: No Hx Cardiac Disease: No Hx Renal Disease: No Hx Cirrhosis: No Hx Alcoholism: No Hx HIV/AIDS: No Hx Splenectomy or Spleen Trauma: No Other PMH: Tonsilectomy as child., anxiety, childhood astma, ETOH - Social History Smoking Status: Former smoker Time Seen by Provider: 09/18/17 14:52 HPI/ROS: CHIEF COMPLAINT: "I'm so anxious" HISTORY OF PRESENT ILLNESS: 22-year-old male familiar to emergency department staff arrives via ambulance complaining of feeling anxious, concerned that his heart rate was in the 90s. No chest pain. No dyspnea. No hallucination. No suicidal or homicidal ideation. No cocaine use. No trauma. REVIEW OF SYSTEMS: A ten point review of systems was performed and is negative with the exception of the items mentioned in the HPI PAST MEDICAL & SURGICAL HISTORY: No pertinent medical or surgical history SOCIAL HISTORY: Denies cocaine use. FAMILY HISTORY: No pertinent family history PHYSICAL EXAM (Prior to examination, patient consented to physical exam, hands were washed and my usual and customary physical exam procedures followed) 1) GENERAL: Well-developed, well-nourished, alert and oriented. Appears anxious. He is consistently watching the heart rate monitor and expresses concern with even small variations in his heart rate. At no point has his heart rate, above 90 during the time of my history and physical. 2) HEAD: Normocephalic, atraumatic 3) HEENT: Pupils equal, round, reactive to light bilaterally. Sclera anicteric. 4) NECK: Full range of motion, no meningeal signs. 5) LUNGS: Clear auscultation bilaterally, no wheezes, no rhonchi, no retractions. 6) HEART: Regular rate and rhythm, no murmur, no heave, no gallop. 7) ABDOMEN: No guarding, no rebound, no focal tenderness, 8) MUSCULOSKELETAL: Moving all extremities, no focal areas of tenderness, no obvious trauma. No peripheral edema or discoloration. 9) BACK: No step-off, no obvious trauma, no visual or palpable abnormality. 10) SKIN: No rash, no petechiae. 11) Psychiatric: Patient is oriented X 3, there is no agitation. DIFFERENTIAL DIAGNOSIS: In no particular order including but not limited to acute anxiety reaction, cardiac dysrhythmia, ME, PE (Jose Juan Hu) Constitutional: Initial Vital Signs Temperature (C) 36.7 C 09/18/17 15:03 Heart Rate 63 09/18/17 15:03 Respiratory Rate 16 09/18/17 15:03 Blood Pressure 133/106 H 09/18/17 15:03 O2 Sat (%) 95 09/18/17 15:03 O2 Delivery Mode Room Air Allergies/Adverse Reactions: No Known Allergies Allergy (Verified 09/18/17 15:06) Home Medications: Medication Instructions Recorded NK [No Known Home Meds] 09/14/17 Medical Decision Making ED Course/Re-evaluation: 3:02 p.m.: I am familiar with this patient as he has been in the emergency department on repeat instances for similar complaints. He appears quite anxious at this time. I have offered benzodiazepine at this time via intranasal route as this is what he has previously been given with relief of anxiety. He adamantly declines any type medication at this time. He declines any type of intervention or diagnostic study. It is not clear to me at this time what the patient's expectations are coming to the emergency department. Will re-evaluate in a few minutes. 3:12 p.m.: Re-evaluation . He is resting in the room. He appears calm. He does not want any type of intervention or medication. I informed the patient that I will be discharging him as he is not allowing us to provide care to him at which when he becomes upset stating "Why aren't you helping me when I have a problem," at which point I again discussed how he is not allowing me or other ER staff to help him. (Jose Juan Hu) The patient was evaluated and managed by the physician assistant child care teacher. I have reviewed this chart and I agree with the findings and plan of care as documented , as indicated by my signature. I am the secondary supervising physician. ( Candida Shi) Departure - Departure Disposition: Home, Routine, Self-Care Clinical Impression: Anxiety Condition: Good Instructions: Anxiety (ED) Additional Instructions: Call 911 if you develop shortness of breath, chest pain, thoughts of hurting herself or others, or any other symptoms that concern you. You have not allowed the emergency department staff to perform diagnostic studies or administer medication. If you change your mind please return to the emergency department. Referrals: [facility],. [Clinic] - 1 day without fail
== END 2017-09-18 15:33 | disposition home or self-care (01) ==
LOC: EDUNIT#
DX: F41.9 Anxiety disorder, unspecified (principal); Z87.891 Personal history of nicotine dependence

== ENCOUNTER 2017-09-19 21:15 | Emergency (ER) | payer MEDICAID ==
[2017-09-19 21:25] VITALS: BP 117/64
--- NOTE | 2017-09-19 21:30 | CPEKG ---
Heart Rate: 61 RR Interval: 984 P-R Interval: 152 QRSD Interval: 106 QT Interval: 380 QTC Interval: 383 P [place]: 20 QRS [place]: 62 T Wave [place]: 31 EKG Severity - BORDERLINE ECG - EKG Impression: SINUS RHYTHM EKG Impression: INFERIOR Q WAVES, PROBABLY NORMAL VARIATION Electronically Signed By: Clovis Truong 20-Sep-2017 07:20:25
--- NOTE | 2017-09-19 21:31 | EDPHY ---
H & P Stated Complaint: CP, arm tingling Time Seen by Provider: 09/19/17 21:30 HPI/ROS: HPI: This is a 22-year-old male who presents with Chief Complaint: Chest pain, arm tingling Location: Anterior chest Quality: Pain Duration: Prior to arrival Signs and Symptoms: no shortness of breath at rest, no shortness of breath on exertion, no cough, no palpitations, no lower extremity edema, no wheezing, no orthopnea, no paroxysmal nocturnal dyspnea, no fever, no injury/trauma, no hemoptysis, no carpal pedal spasms Timing: Acute on chronic Severity: Mild Context: Patient has a history of anxiety disorder with multiple ER visits for the same complaint of anterior chest pain and palpitations. He reports that he is still homeless and was getting ready to go to bed at the group home ([facility]) when he started to feel the pain. Reports that the pain is similar to prior episodes. He describes the pain as moderate, constant, left anterior with no radiation, nothing makes the pain worse or better. He reports that he is working every day and has found a job. Denies cocaine use. Denies any lower extremity edema, cough, fever, palpitations, shortness of breath. He reports that he has not establish care with primary [facility] yet. He has had negative workups as early as this month including normal laboratory studies including D-dimer and troponin, chest x-ray and EKGs. Patient has uncontrolled anxiety and PTSD with regular marijuana and alcohol use. Modifying Factors: None Comment: ROS: see HPI Constitutional: No fever, no chills, no weight loss Eyes: No blurred vision Respiratory: No shortness of breath, no cough Cardiovascular: + chest pain, no palpitations, no lower extremity edema Gastrointestinal: No nausea, no vomiting, no diarrhea Genitourinary: No dysuria Extremities: No myalgias Neurologic: No weakness, no numbness Skin: No rashes Hematologic: No bruising, no bleeding MEDICAL/SURGICAL/SOCIAL HISTORY: Medical history: anxiety, childhood asthma, ETOH, marijuana use Surgical history: Tonsillectomy Social history: Homeless. CONSTITUTIONAL: Extremely well-appearing anxious adult male, awake and alert, no obvious distress HEENT: Atraumatic and normocephalic, PERRL, EOMI. Nares patent; no rhinorrhea; no nasal mucosal edema. Tympanic membranes clear. Oropharynx clear, no exudate and moist pink mucosa. Airway patent. No lymphadenopathy. No meningismus. Cardiovascular: Normal S1/S2, regular rate, regular rhythm, without murmur rub or gallop. PULMONARY/CHEST: Symmetrical and nontender. Clear to auscultation bilaterally. Good air movement. No accessory muscle usage. ABDOMEN: Soft, nondistended, nontender, no rebound, no guarding, no peritoneal signs, no masses or organomegaly. No CVAT. EXTREMITIES: 2/2 pulses, strength 5/5, no deformities, no clubbing, no cyanosis or edema. NEUROLOGICAL: no focal neuro deficits. GCS 15. SKIN: Warm and dry, no erythema. no rash. Good capillary refill. Source: Patient, RN/MD, EMS, Old records Exam Limitations: No limitations - Personal History Current Tetanus/Diphtheria Vaccine: Yes Current Tetanus Diphtheria and Acellular Pertussis (TDAP): Yes Tetanus Vaccine Date: < 10 YEARS - Medical/Surgical History Hx Asthma: No Hx Chronic Respiratory Disease: No Hx Diabetes: No Hx Cardiac Disease: No Hx Renal Disease: No Hx Cirrhosis: No Hx Alcoholism: No Hx HIV/AIDS: No Hx Splenectomy or Spleen Trauma: No Other PMH: Tonsilectomy as child., anxiety, childhood astma, ETOH - Social History Smoking Status: Former smoker Constitutional: Initial Vital Signs Temperature (C) 36.8 C 09/19/17 21:24 Heart Rate 68 09/19/17 21:24 Respiratory Rate 16 09/19/17 21:24 Blood Pressure 117/64 09/19/17 21:24 O2 Sat (%) 95 09/19/17 21:24 O2 Delivery Mode Room Air Allergies/Adverse Reactions: No Known Allergies Allergy (Verified 09/19/17 21:19) Home Medications: Medication Instructions Recorded NK [No Known Home Meds] 09/14/17 Medical Decision Making - Diagnostics EKG Interpretation: 12 lead EKG: Indication: Chest pain Rhythm: Normal sinus rhythm, rate 61 beats per minute [place]: Normal Intervals: Normal QRS: Normal ST segments: Normal INTERPRETATION: No acute ischemic change The 12 lead EKG was interpreted by myself and with attending. ED Course/Re-evaluation: Vital signs reviewed and stable upon arrival. EKG shows no acute ischemic changes. Last full workup including chest x-ray, EKG, laboratory studies with on 2017 including a negative D-dimer and troponin. Patient was seen in this emergency last night for the same complaints with EKG show no acute ischemic changes, no arrhythmias. Patient politely declines any benzodiazepines or laboratory studies at this time. HEART score is low. I do not believe chest x-ray and laboratory studies are indicated at this time. Patient was provided a cab back to the group home this evening. This patient was seen under the supervision of my secondary supervising physician. I evaluated care for this patient independently. Discussed this patient with Dr. Luis. Differential Diagnosis: Chest pain including but not limited to myocardial ischemia, pulmonary embolus, chest wall pain, pleural inflammation and pulmonary infectious causes. Departure - Departure Disposition: Home, Routine, Self-Care Clinical Impression: Non-cardiac chest pain Condition: Good Instructions: Noncardiac Chest Pain (ED) Additional Instructions: Please establish care with primary care provider at [facility]. Referrals: [facility],. [Clinic] - As per Instructions [facility],. [Clinic] - 1 day without fail
== END 2017-09-19 21:59 | disposition home or self-care (01) ==
LOC: EDUNIT#
DX: R07.89 Other chest pain (principal); Z87.891 Personal history of nicotine dependence

== ENCOUNTER 2017-09-20 16:05 | Emergency (ER) | payer MEDICAID ==
[2017-09-20] MEDS ORDERED: NS 500 ML IV ONE (16:50)
--- NOTE | 2017-09-20 17:15 | CPEKG ---
Heart Rate: 49 RR Interval: 1224 P-R Interval: 172 QRSD Interval: 110 QT Interval: 428 QTC Interval: 387 P [place]: 51 QRS [place]: 75 T Wave [place]: 47 EKG Severity - ABNORMAL ECG - EKG Impression: SINUS BRADYCARDIA EKG Impression: INCOMPLETE RIGHT BUNDLE BRANCH BLOCK EKG Impression: INFERIOR Q WAVES, PROBABLY NORMAL VARIATION Electronically Signed By: Candelaria Brito 20-Sep-2017 23:28:01
--- NOTE | 2017-09-20 18:05 | EDPHY ---
H & P Time Seen by Provider: 09/20/17 16:50 HPI/ROS: HPI Chest pain. 22-year-old male by ambulance. This patient complains of tingling and numbness in both hands as well as hyperventilation and chest pain onset a few hours ago. He has been seen for this same complaint multiple times in our emergency department this month alone. He has had multiple negative troponins over the last couple of weeks as well as a negative D-dimer. He reports that this is the same type of pain and symptom set he has had recently multiple times in the past. He does not have any cardiac risk factors. No history of diabetes, hypertension, hyperlipidemia. He is not a smoker. Denies significant family history. He is not obese. ROS: Constitutional: No fever, no chills. As above. Eyes: No discharge. No changes in vision. ENT: No sore throat. No nasal congestion or rhinorrhea. Respiratory: No cough. No shortness of breath. Cardiac: As above, no palpitations. Gastrointestinal: No abdominal pain, no vomiting, no diarrhea. Genitourinary: No hematuria. No dysuria or increased frequency with urination. Musculoskeletal: No back pain. No neck pain. No myalgias or arthralgias. Skin: No rashes. Neurological: No headache. No focal weakness or altered sensation. As above. Past medical history: Anxiety. Alcohol abuse. Social history: Nonsmoker. Here by himself. As above. Physical Exam: General Appearance: Alert, mildly anxious but no distress. This patient is responding to questions appropriately and in full sentences. This patient appears well-hydrated and well-nourished. Eyes: Pupils equal and round no pallor or injection. No lid edema, erythema or injection. Respiratory: There are no retractions, lungs are clear to auscultation with good air movement bilaterally. Cardiovascular: Regular rate and rhythm. No murmur. Chest wall is nontender to AP and lateral palpation. Gastrointestinal: Abdomen is soft and nontender, no masses, bowel sounds normal. No focal tenderness at McBurney's point. No [place] sign. Neurological: Motor sensory function is grossly intact. Cranial nerves are normal. Gait is normal. Skin: Warm and dry, no rashes. Musculoskeletal: Neck is supple and nontender. Extremities are symmetrical. All joints range without pain or impingement. Psychiatric: No agitation. No depression. Database: EKG: EKG time is 5:13 p.m.; EKG shows a narrow complex normal sinus rhythm with a ventricular rate of 49. Incomplete right bundle branch block noted. Q-waves are noted in the inferior leads. The MD, QRS, QT intervals are within normal limits. There are no ST-T wave changes indicative of ischemic or injury pattern. No evidence of right heart strain. No changes in comparison to prior EKGs. Interpreted by me. Imaging: Chest x-ray PA and lateral; the cardiac mediastinal silhouette is unremarkable. No evidence of infiltrate or pneumothorax. No acute cardiopulmonary disease process noted. Interpreted by me. Procedures: Emergency department course: Triage vital signs reviewed. He is mildly tachypneic. Vital signs otherwise normal. Patient presents to the emergency department with same complaint of chest pain and tingling in his hands he has had multiple times. Based on his previous workups, multiple negative troponins, no significant changes in his EKG ease air, D-dimer within normal limits recently, I feel that a pulmonary embolism acute coronary syndrome is very unlikely in this patient. I discussed the results of his EKG and chest x-ray with him. He feels comfortable going home at this time and feels better. He denies any chest pain. He states he feels more relaxed. No shortness of breath. He is to follow up with his primary care physician for re-evaluation in the next 1-2 days. Return to emergency department precautions customarily discussed. All of his questions were answered. He was discharged in good condition. Differential Diagnosis: The differential diagnosis on this patient includes but is not limited to noncardiac chest pain, anxiety reaction. Acute coronary syndrome, aortic dissection, pulmonary embolism, pneumonia, pneumothorax unlikely. This represents a partial list of diagnoses considered. These considerations are based on history, physical exam, past history, reassessment and diagnostic testing. Smoking Status: Former smoker Constitutional: Initial Vital Signs Temperature (C) 36.4 C 09/20/17 16:14 Heart Rate 67 09/20/17 16:14 Respiratory Rate 22 H 09/20/17 16:14 Blood Pressure 136/74 H 09/20/17 16:14 O2 Sat (%) 100 09/20/17 16:14 O2 Delivery Mode Room Air Allergies/Adverse Reactions: No Known Allergies Allergy (Verified 09/20/17 16:14) Home Medications: Medication Instructions Recorded NK [No Known Home Meds] 09/14/17 Medical Decision Making - Diagnostics Imaging Results: Imaging Impressions Chest X-Ray 09/20/17 16:51 Impression: Normal chest. - Data Points Medications Given: Discontinued Medications Sodium Chloride (Ns) 500 mls @ 1,000 mls/hr IV EDNOW ONE PRN Reason: Protocol Stop: 09/20/17 17:19 Last Admin: 09/20/17 17:20 Dose: Not Given Departure - Departure Disposition: Home, Routine, Self-Care Clinical Impression: Chest pain, Anxiety Condition: Good Instructions: Chest Pain (ED), Anxiety (ED) Additional Instructions: Read and follow provided instructions. Follow-up with your primary care physician in 1-2 days for re-evaluation. Ibuprofen dosin mg every 6 hours with meals for the next 3 days only. Take only as needed for pain. Return to the emergency department for worsening symptoms or other serious concerns. Referrals: NONE *PRIMARY CARE P,. [Primary Care Provider] - As per Instructions
[2017-09-20 18:11] VITALS: BP 127/84
== END 2017-09-20 18:10 | disposition home or self-care (01) ==
LOC: EDUNIT#
DX: R07.9 Chest pain, unspecified (principal); F41.9 Anxiety disorder, unspecified; Z87.891 Personal history of nicotine dependence

== ENCOUNTER 2017-09-22 04:20 | Emergency (ER) | payer MEDICAID ==
--- NOTE | 2017-09-22 04:58 | EDPHY ---
H & P Stated Complaint: anxiety, chest pain Time Seen by Provider: 09/22/17 04:50 HPI/ROS: Chief Complaint: Chest pain, left arm tingling HPI: A 22-year-old male complaining of chest pain and left arm tingling which started this morning. Patient has had this multiple times the last couple of months. He has actually been seen multiple times in the last 2 weeks in this emergency department. He has had multiple ECGs, chest x-rays, blood work done and evaluations revealed no remarkable findings. He has not followed up with primary care physician. He states symptoms feel exactly the same. If has started have some tightness and discomfort in his chest he called the paramedics. Denies any fevers or chills. No cough. No nausea or vomiting. These are exactly like the symptoms he has presented with every other presentation this month. ROS: 10 point Review of Systems is negative except as noted in the HPI. Social History: Denies smoking, denies alcohol Family History: non-contributory Physical Exam: Gen: Awake, Alert, No Distress HEENT: Nose: no rhinorrhea Eyes: PERRLA, EOMI Mouth: Moist mucosa Neck: Supple, no JVD Chest: nontender, lungs clear to auscultation Heart: S1, S2 normal, no murmur Abd: Soft, non-tender, no guarding Back: no CVA tenderness, no midline tenderness Ext: no edema, non-tender Skin: no rash Neuro: CN II-XII intact, Sensation grossly intact, Strength 5/5 in bilateral upper and lower extremities - Personal History Current Tetanus/Diphtheria Vaccine: Yes Current Tetanus Diphtheria and Acellular Pertussis (TDAP): Yes Tetanus Vaccine Date: < 10 YEARS - Medical/Surgical History Hx Asthma: No Hx Chronic Respiratory Disease: No Hx Diabetes: No Hx Cardiac Disease: No Hx Renal Disease: No Hx Cirrhosis: No Hx Alcoholism: No Hx HIV/AIDS: No Hx Splenectomy or Spleen Trauma: No Other PMH: Tonsilectomy as child., anxiety, childhood astma, ETOH - Social History Smoking Status: Former smoker Constitutional: Initial Vital Signs Temperature (C) 36.7 C 09/22/17 04:26 Heart Rate 55 L 09/22/17 04:26 Respiratory Rate 16 09/22/17 04:26 Blood Pressure 125/83 H 09/22/17 04:26 O2 Sat (%) 96 07/28/18 04:26 O2 Delivery Mode Room Air Allergies/Adverse Reactions: No Known Allergies Allergy (Verified 09/22/17 04:25) Home Medications: Medication Instructions Recorded NK [No Known Home Meds] 09/14/17 Medical Decision Making ED Course/Re-evaluation: 22-year-old male presenting with chest discomfort which she has presented for almost on a daily basis for the last couple of weeks. Multiple evaluations have been negative. I have explained to him that coming to the emergency department is not going to provide him with answers to his symptoms. He needs to follow up with primary care physician and follow up with [facility]. I do not feel any further testing will be of use this morning. Departure - Departure Disposition: Home, Routine, Self-Care Clinical Impression: Atypical chest pain Condition: Good Instructions: Chest Pain (ED) Additional Instructions: Is extremely important that you follow up with primary care physician for further evaluation of chest pain. He you of received multiple repeated test in the emergency department and these were not revealed any acute process in your heart or lungs. Further testing in the emergency department will not be of any further help. The need to follow up with primary care to address these concerns further. Referrals: [facility],. [Clinic] - As per Instructions [facility],. [Clinic] - As per Instructions
[2017-09-22 05:06] VITALS: BP 126/55
== END 2017-09-22 05:25 | disposition home or self-care (01) ==
LOC: EDUNIT#
DX: R07.89 Other chest pain (principal); Z87.891 Personal history of nicotine dependence

== ENCOUNTER 2017-09-25 21:50 | Emergency (ER) | payer MEDICAID ==
--- NOTE | 2017-09-25 22:03 | EDPHY ---
H & P Time Seen by Provider: 09/25/17 21:58 HPI/ROS: CHIEF COMPLAINT: Chest pain HISTORY OF PRESENT ILLNESS: Patient is a 22-year-old homeless male presents to the ED again via ambulance for chest pain. The patient has been seen in the emergency department least 15 times in the past month for similar symptoms. He has had numerous negative EKGs. He has no risk factors for coronary artery disease and likely is experiencing symptoms related to anxiety. The patient did schedule an intake appointment with [facility] and is scheduled to have a formal assessment done within the week. He has not yet established primary care. The patient reports that he is having difficulty sleeping as homeless correction. He denies any drug or alcohol use. He denies fever, cough or congestion. He denies asymmetric calf pain or swelling REVIEW OF SYSTEMS: A comprehensive 10 point review of systems is otherwise negative aside from elements mentioned in the history of present illness. Source: Patient Exam Limitations: No limitations - Personal History Tetanus Vaccine Date: < 10 YEARS - Medical/Surgical History Hx Asthma: No Hx Chronic Respiratory Disease: No Hx Diabetes: No Hx Cardiac Disease: No Hx Renal Disease: No Hx Cirrhosis: No Hx Alcoholism: No Hx HIV/AIDS: No Hx Splenectomy or Spleen Trauma: No Other PMH: Tonsilectomy as child., anxiety, childhood astma, ETOH - Social History Smoking Status: Former smoker - Physical Exam Exam: General Appearance: Alert, no distress Eyes: Pupils equal and round no pallor or injection ENT, Mouth: Mucous membranes moist Respiratory: There are no retractions, lungs are clear to auscultation Cardiovascular: Regular rate and rhythm Gastrointestinal: Abdomen is soft and nontender, no masses, bowel sounds normal Neurological: A&O, normal motor function, normal sensory exam, normal cranial nerves Skin: Warm and dry, no rashes Musculoskeletal: Neck is supple nontender Extremities: symmetrical, full range of motion Psychiatric: Patient is oriented X 3, there is no agitation Allergies/Adverse Reactions: No Known Allergies Allergy (Verified 09/22/17 04:25) Home Medications: Medication Instructions Recorded NK [No Known Home Meds] 09/14/17 Medical Decision Making ED Course/Re-evaluation: I reviewed the patient's past workup. The patient is declining a 12 lead EKG in the emergency department. Based upon his prior visits I do not feel that this is a presentation for acute coronary syndrome. Patient has been encouraged to continue to work with [facility]. I have told him that I do not feel it is appropriate for him to continue to access the pre- hospital system for his chronic chest pain. The patient will be discharged from the emergency department. He is [facility]. Departure - Departure Disposition: Home, Routine, Self-Care Clinical Impression: Chest pain, Anxiety Condition: Good Instructions: Anxiety (ED) Additional Instructions: 1. Please continue to follow up as scheduled with [facility]. 2. Please schedule a follow-up appointment with [facility]. The homeless correction can help you schedule this appointment. Referrals: [facility],. [Clinic] - As per Instructions [facility],. [Clinic] - As per Instructions
[2017-09-25 22:11] VITALS: BP 126/64
== END 2017-09-25 22:18 | disposition home or self-care (01) ==
LOC: EDUNIT#
DX: R07.9 Chest pain, unspecified (principal); F41.9 Anxiety disorder, unspecified; Z59.0 Homelessness

== ENCOUNTER 2017-10-13 | Emergency (ER) | payer MEDICAID, OTHER | END 2017-10-13 07:02 | disposition home or self-care (01) | DX: F41.9 Anxiety disorder, unspecified (principal); R07.9 Chest pain, unspecified; Z87.891 Personal history of nicotine dependence ==